=== PATIENT | male | born 1935 | race Caucasian/White ===

== ENCOUNTER 2016-10-16 12:23 | Inpatient (IN) | payer MEDICARE, OTHER ==
[2016-10-16] VITALS (7 sets, daily range): BP systolic 108–147; BP diastolic 64–67; PULSE 92–114; RESP 20; TEMP 96.9–97.9; O2SAT 90–98
[~2016-10-16] VITALS: Ht 177.8 cm; Wt 80.3 kg
[~2016-10-16 12:23] MED LIST: ALLO100 PO; ASPI81 PO; CALTTAB2 PO; CENTTAB9 PO; FERR324T4 PO; FOLI1TAB PO; LEVO50TA4 PO; LEVOFLOXACIN PO; MIRA33502 PO; MS C30TA5 PO; NEUR800T PO; NIAS10004 PO; NOVOLOGMXP SQ; OMEP20CA5 PO; OXYC5 PO; PAME10CA PO; PRED5TAB; PRIN10TA PO; SLEE25TA PO; [UNRECOGNIZED DRUG - CODE] PO
--- NOTE | 2016-10-16 12:50 | PD ---
HPI Chief Complaint: General Weakness Time Seen by Provider: 12:35 Travel History International Travel<30 days: No Contact w/Intl Traveler<30days: No Traveled to known affect area: No History of Present Illness HPI This 81-year-old male is here with complaint of generalized weakness. He says his symptoms have been going on for several weeks but seems to be getting worse the last few days. He has a history of COPD. He had a liver transplant in 1997 which his knowledge has been working well. He was recently treated for lung cancer. He was treated with radiation and chemotherapy chemotherapy was cut short because his bone marrow was not recovering very well. He was treated at [facility] by Dr. Marques. His last treatment was 5 weeks ago. He has been a bit confused at times. His says he has been confused at times. He has had some trouble with tasks he does on a regular basis. His balance has been off. He generally walks with a walker but the last 2 days she has been using a wheelchair because he is quite unsteady. PFSH Past Medical History Cancer: Yes (BLADDER) Chemotherapy: Yes Diabetes: Yes Diminished Hearing: No Glaucoma: No Hiatal Hernia: No Hypertension: Yes Thyroid Disease: Yes Past Surgical History Abdominal Surgery: Yes (LIVER TRANSPLANT) Genitourinary Surgery: Yes (CYSTO) Neurologic Surgery: Yes (CERVICAL LAMINECTOMY) Oral Surgery: Yes (T & A) Pacemaker: No Other Surgery: Yes Social History Alcohol Use: No Tobacco Use: Yes (QUIT 1984) Substance Use: No Allergies-Medications (Allergen,Severity, Reaction): Coded Allergies: Vaccines (Bovine) (Verified Allergy, Severe, 05/11/14) Vaccines (Porcine) (Verified Allergy, Severe, 05/11/14) Pea (Verified Adverse Reaction, Severe, VOMITING, 05/11/14) Reported Meds & Prescriptions Reported Meds & Active Scripts Active Reported Guaifenesin 400 Mg Tab Ventolin Hfa 18 GM Inh (Albuterol Sulfate) 90 Mcg/Act Aer 2 Puff INH Q4-6H PRN Ursodiol 300 Mg Cap 300 Mg PO BID Lyrica (Pregabalin) 150 Mg Cap 150 Mg PO BID Prednisone 2.5 Mg Tab 2.5 Mg PO DAILY Miralax (Polyethylene Glycol 3350) 17 Gm Powd.pack Oxycodone (Oxycodone HCl) 5 Mg Cap 5 Mg PO Q6H PRN Omeprazole 20 Mg Tab 20 Mg PO DAILY Nortriptyline (Nortriptyline HCl) 10 Mg Cap 10 Mg PO HS Mycophenolate (Mycophenolate Mofetil) 500 Mg Tab 1,000 Mg PO BID Morphine ER (Morphine Sulfate) 30 Mg Tab 30 Mg PO Q8H Levothyroxine (Levothyroxine Sodium) 100 Mcg Tab 100 Mcg PO DAILY Lantus Solostar Pen Inj (Insulin Glargine) 300 Unit/3 Ml Pen 1 Units SQ Afrezza 4 & 8 & 12 Unit (Insulin Regular (Human)) 1 Pow Pow Folic Acid 800 Mcg Tab 800 Mcg PO DAILY Clotrimazole Topical (Clotrimazole) 1% Soln 1 Applic TOPICAL BID D-2000 Maximum Strength (Cholecalciferol) 2,000 Unit Tab 2,000 Units PO DAILY Allopurinol 100 Mg Tab 100 Mg PO DAILY Megestrol (Megestrol Acetate) 40 Mg Tab 40 Mg PO QID Review of Systems General / Constitutional: No: Fever, Chills Eyes: No: Diploplia, Blurred Vision HENT: No: Headaches Cardiovascular: No: Chest Pain or Discomfort Respiratory: Positive: Cough, Shortness of Breath, Orthopnea Gastrointestinal: No: Vomiting, Diarrhea Genitourinary: No: Urgency, Frequency Musculoskeletal: No: Myalgias Skin: No Change in nails Neurologic: Positive: Change in Mentation, No: Focal Abnormalities Endocrine: No: Cold Intolerance Hematologic/Lymphatic: No: Easy Bruising Physical Exam Narrative GENERAL: Chronically ill-appearing male. He is dyspneic SKIN: Focused skin assessment warm/dry. HEAD: Atraumatic. Normocephalic. EYES: Pupils equal and round. No scleral icterus. No injection or drainage. ENT: No nasal bleeding or discharge. Mucous membranes pink and moist. NECK: Trachea midline. No JVD. CARDIOVASCULAR: Regular rate and rhythm. No murmur appreciated. RESPIRATORY: There is accessory muscle use. There are coarse rales more prominent on the left side GASTROINTESTINAL: Abdomen soft, non-tender, nondistended. Hepatic and splenic margins not palpable. MUSCULOSKELETAL: No obvious deformities. No clubbing. No cyanosis. No edema. NEUROLOGICAL: Awake and alert. No obvious cranial nerve deficits. Motor grossly within normal limits. Normal speech. PSYCHIATRIC: Appropriate mood and affect; insight and judgment normal. Data Data Last Documented VS Vital Signs Date Time Temp Pulse Resp B/P Pulse Ox O2 Delivery O2 Flow Rate FiO2 10/16/16 13:14 92 10/16/16 12:27 97.9 99 20 110/67 Orders Electrocardiogram (10/16/16 12:46) Complete Blood Count With Diff (10/16/16 12:46) Comprehensive Metabolic Panel (10/16/16 12:46) Troponin I (10/16/16 12:46) B-Type Natriuretic Peptide (10/16/16 12:46) Prothrombin Time / Inr (Pt) (10/16/16 12:46) Act Partial Throm Time (Ptt) (10/16/16 12:46) Urinalysis - C+S If Indicated (10/16/16 12:46) Chest, Single Ap (10/16/16 12:46) Ct Brain W/O Iv Contrast(Rout) (10/16/16 12:46) Iv Access Insert/Monitor (10/16/16 12:46) Ecg Monitoring (10/16/16 12:46) Oximetry (10/16/16 12:46) Blood Culture (10/16/16 14:02) Lactic Acid Sepsis Protocol (10/16/16 14:09) Ceftriaxone Inj (Rocephin Inj) (10/16/16 14:15) Sodium Chlor 0.9% 1000 Ml Inj (Ns 1000 M (10/16/16 14:30) Labs Laboratory Tests Test 10/16/16 13:35 White Blood Count 7.0 TH/MM3 Red Blood Count 3.13 MIL/MM3 Hemoglobin 10.0 GM/DL Hematocrit 29.9 % Mean Corpuscular Volume 95.4 FL Mean Corpuscular Hemoglobin 31.9 PG Mean Corpuscular Hemoglobin 33.5 % Concent Red Cell Distribution Width 15.4 % Platelet Count 182 TH/MM3 Mean Platelet Volume 7.3 FL Neutrophils (%) (Auto) 79.6 % Lymphocytes (%) (Auto) 5.7 % Monocytes (%) (Auto) 12.9 % Eosinophils (%) (Auto) 1.5 % Basophils (%) (Auto) 0.3 % Neutrophils # (Auto) 5.6 TH/MM3 Lymphocytes # (Auto) 0.4 TH/MM3 Monocytes # (Auto) 0.9 TH/MM3 Eosinophils # (Auto) 0.1 TH/MM3 Basophils # (Auto) 0.0 TH/MM3 CBC Comment DIFF FINAL Differential Comment Prothrombin Time 12.0 SEC Prothromb Time International 1.1 RATIO Ratio Activated Partial 52.0 SEC Thromboplast Time Sodium Level 140 MEQ/L Potassium Level 3.7 MEQ/L Chloride Level 107 MEQ/L Carbon Dioxide Level 20.7 MEQ/L Anion Gap 12 MEQ/L Blood Urea Nitrogen 22 MG/DL Creatinine 0.94 MG/DL Estimat Glomerular Filtration 77 ML/MIN Rate Random Glucose 168 MG/DL Calcium Level 8.6 MG/DL Total Bilirubin 0.8 MG/DL Aspartate Amino Transf 9 U/L (AST/SGOT) Alanine Aminotransferase 9 U/L (ALT/SGPT) Alkaline Phosphatase 146 U/L Troponin I LESS THAN 0.02 NG/ML B-Type Natriuretic Peptide 162 PG/ML Total Protein 6.3 GM/DL Albumin 2.4 GM/DL MDM Medical Decision Making Medical Screen Exam Complete: Yes Emergency Medical Condition: Yes Medical Record Reviewed: Yes Differential Diagnosis Differential includes metastatic lung cancer, CVA, pneumonia Narrative Course White count is normal. Chest x-ray shows left mid lung and basilar infiltrate characteristic of either acute pneumonia or postradiation pneumonitis. CT of the brain is read as showing atrophy. EKG shows sinus rhythm with first-degree AV block and a right bundle-branch block Diagnosis Primary Impression: Pneumonia Shawn Cloud MD Oct 16, 2016 12:50
[2016-10-16] MEDS ORDERED: LANTINJ SQ (13:14)
[2016-10-16] MEDS ORDERED: GUAI400T8 (13:14)
[2016-10-16] MEDS ORDERED: URSO300C2 PO (13:14)
[2016-10-16] MEDS ORDERED: LYRI150C PO (13:14)
[2016-10-16] MEDS ORDERED: MEGE40TA PO (13:14)
[2016-10-16] MEDS ORDERED: NORT10CA PO (13:14)
[2016-10-16] MEDS ORDERED: FOLI800T PO (13:14)
[2016-10-16] MEDS ORDERED: POLY17PO3 (13:14)
[2016-10-16] MEDS ORDERED: ALLO100T PO (13:14)
[2016-10-16] MEDS ORDERED: PRED2.5T PO (13:14)
[2016-10-16] MEDS ORDERED: INSU1POW25 (13:14)
[2016-10-16] MEDS ORDERED: LEVO100T5 PO (13:14)
[2016-10-16] MEDS ORDERED: CLOTR1%T TOPICAL (13:14)
[2016-10-16] MEDS ORDERED: MORP1TAB25 PO (13:14)
[2016-10-16] MEDS ORDERED: D-20TAB3 PO (13:14)
[2016-10-16] MEDS ORDERED: VENTAER INH (13:14)
[2016-10-16] MEDS ORDERED: OMEP20TA PO (13:14)
[2016-10-16] MEDS ORDERED: OXYC1CAP PO (13:14)
[2016-10-16] MEDS ORDERED: MYCO500T PO (13:14)
--- NOTE | 2016-10-16 13:36 | RADRPT ---
EXAM DATE/TIME: 10/16/2016 13:11 [facility] COMPARISON: CT BRAIN W/O CONTRAST, May 11, 2014, 23:34. INDICATIONS : Altered mental status. RADIATION DOSE: 67.11 CTDIvol (mGy) MEDICAL HISTORY : Carcinoma, lung. Diabetes mellitus type 2. Renal failure, chronic.Cirrhosis. Bladder cancer. SURGICAL HISTORY : Cervical laminectomy. Liver transplant. ENCOUNTER: Initial ACUITY: 1 day PAIN SCALE: 0/10 LOCATION: cranial TECHNIQUE: Multiple contiguous axial images were obtained of the head. Using automated exposure control and adj ustment of the mA and/or kV according to patient size, radiation dose was kept as low as reasonably a chievable to obtain optimal diagnostic quality images. DICOM format image data is available electro nically for review and comparison. FINDINGS: There is marked central and cortical atrophy with dilatation of ventricular and sulcal spaces. Moderate vascular calcifications are noted. There is no parenchymal hemorrhage, acute infarction or mass lesion identified. There are no extra-axial fluid collections appreciated. The posterior fossa is unremarkable with midline fourth ventricle. The portion of the orbits and paranasal sinuses visu alized are unremarkable. CONCLUSION: Atrophy, moderate vascular calcifications, negative for acute process. Shaka Higuera MD FACR on October 16, 2016 at 13:33 Board Certified Radiologist. This report was verified electronically.
[2016-10-16 13:52] LABS: AUTOMATED NEUTROPHIL # 5.6 TH/MM3 (1.8-7.7); BASOPHIL % 0.3 % (0.0-2.0); EOSINOPHIL # 0.1 TH/MM3 (0-0.4); EOSINOPHIL % 1.5 % (0.0-4.0); HEMATOCRIT 29.9 % (39.0-51.0); HEMO FLAGS DIFF FINAL; LYMPH % 5.7 % (9.0-44.0); LYMPHOCYTE # 0.4 TH/MM3 (1.0-4.8); MEAN CELL VOLUME 95.4 FL (80.0-100.0); MEAN CORPUSCULAR HEMOGLOBIN 31.9 PG (27.0-34.0); MEAN CORPUSCULAR HGB CONC 33.5 % (32.0-36.0); MONO % 12.9 % (0.0-8.0); NEUT % 79.6 % (16.0-70.0); PLATELET COUNT 182 TH/MM3 (150-450); RED BLOOD COUNT 3.13 MIL/MM3 (4.50-5.90); RED CELL DISTRIBUTION WIDTH 15.4 % (11.6-17.2)
[2016-10-16 13:59] LABS: CHLORIDE 107 MEQ/L (98-107); POTASSIUM 3.7 MEQ/L (3.5-5.1); SODIUM (NA) 140 MEQ/L (136-145)
[2016-10-16 14:02] LABS: INTERNATIONAL NORMALIZED RATIO 1.1 RATIO
[2016-10-16 14:04] LABS: ANION GAP 12 MEQ/L (5-15); BICARBONATE 20.7 MEQ/L (21.0-32.0)
[2016-10-16 14:05] LABS: BLOOD UREA NITROGEN 22 MG/DL (7-18)
[2016-10-16 14:07] LABS: ALT (GPT) 9 U/L (12-78); AST (GOT) 9 U/L (15-37)
[2016-10-16 14:08] LABS: GLOMERULAR FILTRATION RATE 77 ML/MIN (>89)
[2016-10-16 14:09] LABS: TOTAL BILIRUBIN ADULT 0.8 MG/DL (0.2-1.0)
[2016-10-16 14:10] LABS: ALKALINE PHOSPHATASE 146 U/L (45-117)
[2016-10-16] MEDS ORDERED: cefTRIAXone INJ 1,000 MG in SODIUM CHLORIDE 0.9% INJ 100 ML IV ONE (14:15)
--- NOTE | 2016-10-16 14:24 | RADRPT ---
EXAM DATE/TIME: 10/16/2016 13:51 [facility] COMPARISON: CT BRAIN W/O CONTRAST, October 16, 2016, 13:11. CT SIMULATION, April 12, 2016, 14:52. CHEST SINGL E AP, May 11, 2014, 22:45. INDICATIONS : Short of breath. MEDICAL HISTORY : Carcinoma, lung. Chronic obstructive pulmonary disease. Diabetes mellitus type II. SURGICAL HISTORY : None. ENCOUNTER: Initial ACUITY: 1 week PAIN SCORE: 0/10 LOCATION: Bilateral chest FINDINGS: A single view of the chest demonstrates significant infiltration throughout the left mid lung and bas e. A CT simulation of the chest was performed for treatment of a left basilar mass. The right lung is clear. [id number] catheter is noted in place. Heart and mediastinal structures are not significantly changed. CONCLUSION: 1. Left mid lung and base infiltration characteristic of either acute pneumonitis or post radiation p neumonitis. 2. Right internal jugular [id number] in good position. Karl Davison MD on October 16, 2016 at 14:18 Board Certified Radiologist. This report was verified electronically.
[2016-10-16] MEDS ORDERED: SODIUM CHLOR 0.9% 1000 ML INJ 1,000 ML IV ONE (14:30)
[2016-10-16] MEDS ORDERED: SODIUM CHLORIDE 0.9% FLUSH 10 ML FLUSH IV FLUSH PRN (15:45)
[2016-10-16] MEDS ORDERED: RESP: ALBUTEROL 2.5 MG/IPRATROPIUM 0.5 MG NEB (PRN) INH (15:45)
--- NOTE | 2016-10-16 15:47 | HHI.HP ---
[facility] Admission Diagnosis PNEUMONIA Diagnoses: Chief Complaint: Weakness Travel History International Travel<30 Days: No Contact w/Intl Traveler <30 Da: No Traveled to Known Affected Are: No History of Present Illness Patient is an 81-year-old gentleman with a history of lung cancer recently undergone radiation. He was in chemotherapy but it was cut short due to poor bone marrow response. The patient presents to the emergency room with his who says that he is more confused and more weak over the last several days. Over the last few weeks he has been sleeping more and not eating well. Over the last 4-5 days he is becoming worse. He does have history of COPD and lung cancer which is being treated. He has not been more short of breath but he's been sleeping a lot. In fact in the emergency room he is hypoxemic at 90%. Patient is anemic also this is not a new problem. Patient has been using a walker but now uses a wheelchair because he is unsteady and she is worried that he will fall. The patient's come to the emergency room for these evaluations and has been found to have pneumonia on x-ray. CT of the head was done which is unremarkable. Patient is on immunosuppressive therapy because of a lung transplant which is done in late . Here he does not have a white cell count elevation does not have a fever but appears quite weak and pale and is concerning for severe pneumonia in immunocompromised host Review of Systems Constitutional: COMPLAINS OF: Dizziness, DENIES: Diaphoretic episodes, Fatigue , Fever, Weight gain, Weight loss, Chills, Change in appetite, Night Sweats Endocrine: COMPLAINS OF: Heat/cold intolerance, DENIES: Polydipsia, Polyuria, Polyphagia Eyes: DENIES: Blurred vision, Diplopia, Eye inflammation, Eye pain, Vision loss , Photosensitivity, Double Vision Ears, nose, mouth, throat: DENIES: Tinnitus, Hearing loss, Vertigo, Nasal discharge, Oral lesions, Throat pain, Hoarseness, Ear Pain, Running Nose, Epistaxis, Sinus Pain, Toothache, Odynophagia Respiratory: DENIES: Apneas, Cough, Snoring, Wheezing, Hemoptysis, Sputum production, Shortness of breath Cardiovascular: DENIES: Chest pain, Palpitations, Syncope, Dyspnea on Exertion , PND, Lower Extremity Edema, Orthopnea, Claudication Gastrointestinal: DENIES: Abdominal pain, Black stools, Bloody stools, Constipation, Diarrhea, Nausea, Vomiting, Difficulty Swallowing, Anorexia Genitourinary: DENIES: Sexual dysfunction, Urinary frequency, Urinary incontinence, Urgency, Hematuria, Dysuria, Nocturia, Penile Discharge, Testicular Pain, Testicular Swelling Musculoskeletal: DENIES: Joint pain, Muscle aches, Stiffness, Joint Swelling, Back pain, Neck pain Integumentary: DENIES: Abnormal pigmentation, Nail changes, Pruritus, Rash Neurologic: COMPLAINS OF: Abnormal gait, Poor Balance, DENIES: Headache, Localized weakness, Paresthesias, Seizures, Speech Problems, Tremor Psychiatric: COMPLAINS OF: Confusion, DENIES: Anxiety, Mood changes, Depression, Hallucinations, Agitation, Suicidal Ideation, Homicidal Ideation, Delusions Past Family Social History Past Medical History Diabetes mellitus type II, Bladder cancer Lung cancer immunosuppressive therapy secondary to liver transplant Diabetic neuropathy Past Surgical History Liver transplant Reported Medications Reviewed in the medical record, Allergies: Coded Allergies: Vaccines (Bovine) (Verified Allergy, Severe, 05/11/14) Vaccines (Porcine) (Verified Allergy, Severe, 05/11/14) Pea (Verified Adverse Reaction, Severe, VOMITING, 05/11/14) Active Ordered Medications Reviewed in the medical record Family History Noncontributory due to patient's age of 81 and he does not recall Social History , no tobacco or alcohol dependency Physical Exam Vital Signs Vital Signs Date Time Temp Pulse Resp B/P Pulse Ox O2 Delivery O2 Flow Rate FiO2 10/16/16 13:14 92 10/16/16 12:27 97.9 99 20 110/67 90 Physical Exam GENERAL: This is a well-nourished, well-developed patient, in no apparent distress. SKIN: No rashes, ecchymoses or lesions. Cool and dry. HEAD: Atraumatic. Normocephalic. No temporal or scalp tenderness. EYES: Pupils equal round and reactive. Extraocular motions intact. No scleral icterus. No injection or drainage. ENT: Nose without bleeding, purulent drainage or septal hematoma. Throat without erythema, tonsillar hypertrophy or exudate. Uvula midline. Airway patent. NECK: Trachea midline. No JVD or lymphadenopathy. Supple, nontender, no meningeal signs. CARDIOVASCULAR: Regular rate and rhythm without murmurs, gallops, or rubs. RESPIRATORY: Clear to auscultation. Breath sounds equal bilaterally. No wheezes , rales, or rhonchi. GASTROINTESTINAL: Abdomen soft, non-tender, nondistended. No hepato-splenomegaly , or palpable masses. No guarding. MUSCULOSKELETAL: Extremities without clubbing, cyanosis, or edema. No joint tenderness, effusion, or edema noted. No calf tenderness. Negative Homans sign bilaterally. NEUROLOGICAL: Awake and alert. Cranial nerves II through XII intact. Motor and sensory grossly within normal limits. Five out of 5 muscle strength in all muscle groups. Normal speech. Laboratory Laboratory Tests Test 10/16/16 10/16/16 13:35 15:09 White Blood Count 7.0 Red Blood Count 3.13 Hemoglobin 10.0 Hematocrit 29.9 Mean Corpuscular Volume 95.4 Mean Corpuscular Hemoglobin 31.9 Mean Corpuscular Hemoglobin 33.5 Concent Red Cell Distribution Width 15.4 Platelet Count 182 Mean Platelet Volume 7.3 Neutrophils (%) (Auto) 79.6 Lymphocytes (%) (Auto) 5.7 Monocytes (%) (Auto) 12.9 Eosinophils (%) (Auto) 1.5 Basophils (%) (Auto) 0.3 Neutrophils # (Auto) 5.6 Lymphocytes # (Auto) 0.4 Monocytes # (Auto) 0.9 Eosinophils # (Auto) 0.1 Basophils # (Auto) 0.0 CBC Comment DIFF FINAL Differential Comment Prothrombin Time 12.0 Prothromb Time International 1.1 Ratio Activated Partial 52.0 Thromboplast Time Sodium Level 140 Potassium Level 3.7 Chloride Level 107 Carbon Dioxide Level 20.7 Anion Gap 12 Blood Urea Nitrogen 22 Creatinine 0.94 Estimat Glomerular Filtration 77 Rate Random Glucose 168 Calcium Level 8.6 Total Bilirubin 0.8 Aspartate Amino Transf 9 (AST/SGOT) Alanine Aminotransferase 9 (ALT/SGPT) Alkaline Phosphatase 146 Troponin I LESS THAN 0.02 B-Type Natriuretic Peptide 162 Total Protein 6.3 Albumin 2.4 Lactic Acid Level 0.7 Date/Time Procedure Status Source Growth 10/16/16 14:13 Aerobic Blood Culture Received Blood Peripheral Pending 10/16/16 14:13 Anaerobic Blood Culture Received Blood Peripheral Pending Result Diagram: 10/16/16 1335 10/16/16 1335 Assessment and Plan Problem List: (1) Pneumonia ICD Code: J18.9 Status: Acute Plan: Patient admits intolerance to azithromycin and Augmentin We'll add Levaquin Rule out pulmonary embolism given his hypoxemia and malignancy We'll follow with sputum as it becomes available and continue with bronchodilators (2) Weakness ICD Code: R53.1 Status: Acute Plan: Perhaps due from pneumonia which we will treat as above, continue with PT evaluation We will correct organic dysfunction Physician Certification 2 Midnight Certification Type: Admission for Inpatient Services Order for Inpatient Services The services are ordered in accordance with Medicare regulations or non- Medicare payer requirements, as applicable. In the case of services not specified as inpatient-only, they are appropriately provided as inpatient services in accordance with the 2-midnight benchmark. Estimated LOS (days): 3 3 days is the estimated time the patient will need to remain in the hospital, assuming treatment plan goals are met and no additional complications. Post-Hospital Plan: Home Problem Qualifiers (1) Pneumonia: Fauzia Bosch MD Oct 16, 2016 15:47
[2016-10-16] MEDS ORDERED: GLUCAGON 1 MG/ML VIAL OTHER PRN (16:00)
[2016-10-16] MEDS ORDERED: DEXTROSE 50% IN WATER 50 ML VIAL(D50) IV PRN (16:00)
[2016-10-16] MEDS: LEVOFLOXACIN 750 MG PREMIX INJ 150 ML IV SCH (17:33)
[2016-10-16] MEDS: INSULIN ASPART SUPPLEMENTAL SCALE SQ SCH ×2 (17:39→23:41)
[2016-10-16] MEDS ORDERED: IOHEXOL 350 MG/ML 10 ML VIAL (for RAD DIAG) IV ONE (18:00)
--- NOTE | 2016-10-16 18:15 | RADRPT ---
EXAM DATE/TIME: 10/16/2016 17:48 [facility] COMPARISON: No previous studies available for comparison. INDICATIONS : Shortness of breath. IV CONTRAST: 65 cc Omnipaque 350 (iohexol) IV RADIATION DOSE: 18.23 CTDIvol (mGy) MEDICAL HISTORY : Diabetes mellitus type 2. Carcinoma, lung. Carcinoma, bladder. SURGICAL HISTORY : None. ENCOUNTER: Initial ACUITY: 1 day PAIN SCALE: 0/10 LOCATION: chest TECHNIQUE: Volumetric scanning of the chest was performed using a pulmonary embolism protocol MIP images were re constructed. Using automated exposure control and adjustment of the mA and/or kV according to patien t size, radiation dose was kept as low as reasonably achievable to obtain optimal diagnostic quality images. DICOM format image data is available electronically for review and comparison. Follow-up recommendations for incidentally detected pulmonary nodules are based at a minimum on nodul e size and patient risk factors according to Fleischner Society Guidelines. FINDINGS: No filling defects identified in the pulmonary arteries to suggest pulmonary embolic disease. There are presumed post radiation changes in the left lung characterized by consolidation with air br onchograms suspected fibrotic change and some cylindrical bronchiectasis. There are dependent and bas ilar densities in both lungs possibly related to prior aspiration or some form of calcification the l ungs. There is a small left effusion. Right sided pleural thickening present. No adenopathy. Dense co ronary calcifications. CONCLUSION: 1. Negative for pulmonary embolus. 2. Multifocal consolidation in the left lung which could be related to radiation changes and fibrosis with traction bronchiectasis. Small left effusion. 3. Basilar dependent calcification or radiopaque barium which could be related to prior aspiration. Juan Villeda MD on October 16, 2016 at 18:07 Board Certified Radiologist. This report was verified electronically.
[2016-10-16] MEDS: SODIUM CHLORIDE 0.9% FLUSH 10 ML FLUSH IV FLUSH SCH (21:00)
--- NOTE | 2016-10-16 21:18 | MB ---
cc: ELMIRA LARRY MD DATE OF CONSULTATION: 10/16/2016 REASON FOR CONSULTATION: Pneumonia. REQUESTING PHYSICIAN Dr. Bosch HISTORY OF PRESENT ILLNESS This is an 81-year-old white male who has a history of lung cancer which has been treated with chemotherapy and radiation therapy. The patient presented to the emergency department with generalized weakness. It is reported to have been going on for several weeks and getting worse. The patient's noted that he has had cough in the morning, and in the morning he gets a lot of secretions in the oral cavity and also nasal secretions as well. She noted that he has not seemed as alert as usual. The patient does receive radiation therapy to the lungs and that was completed in June 2016. He had a chest x-ray that was performed and it showed mid lung and basilar infiltrate. CT scan was subsequently performed and it shows multifocal consolidation in the left lung which could be related to radiation changes and fibrosis, and a small left effusion. The patient's white blood cell count is normal. He is afebrile. He does not appear to be in any acute distress. He is awake and he is alert. He denies any aches or pains including chest pain but tells me he does get short of breath at times. He is not on any oxygen. His is at bedside. She reports no fevers recently. She did mention that he may have been having problems with swallowing and sometimes complains of some difficulty with what sounds like regurgitation when he eats. PAST MEDICAL HISTORY 1. Lung cancer treated with radiation and chemotherapy. 2. Diabetes mellitus 3. Hypertension 4. Thyroid disease 5. Bladder cancer 6. Cervical laminectomy 7. Liver transplant Cystoscopy. ALLERGIES Vaccines (bovine and porcine). Pea. MEDICATIONS 8. Levaquin. 9. Insulin. 10. DuoNeb 11. Ceftriaxone x1 was given earlier. SOCIAL HISTORY The patient is . No tobacco, no alcohol. No illicit drugs. FAMILY HISTORY Noncontributory. REVIEW OF SYSTEMS Pertinent as mentioned above, otherwise negative on 10 point. PHYSICAL EXAMINATION: The patient is a slender male, who appears well-nourished. He is awake, alert, in no acute distress. VITAL SIGNS: Temperature 97.8, blood pressure 130/64, respiratory rate 20, heart rate 96. HEENT: Head is atraumatic. Extraocular movements grossly intact, pupils reactive to light. No icterus. Oropharynx, moist mucosa without lesions. Neck: Supple without adenopathy. Lungs: Decreased breath sounds throughout. Heart: Regular S1-S2 without murmurs. Chest: [id number] in place at the right chest and that appears intact. Abdomen: Bowel sounds present, soft, no tenderness. No mass palpable. Rectal: Not performed. Extremities: No clubbing or cyanosis or edema. Skin: No rash. Neuro: No gross focal findings. LABORATORY DATA WBC 7.0, platelet count 182, 79% neutrophils, 12% monocytes, hemoglobin 10.0, creatinine 0.94, BUN 22, estimated GFR 77. Liver function tests normal. Albumin 2.4, blood cultures pending. CT scan of the head shows atrophy but no acute process. IMPRESSION 1. Lung infiltrate, probably likely secondary to radiation versus aspiration pneumonia. 2. Lung cancer. The patient does not have fever or elevated white blood cell count. He does not seem to have pleuritic chest pain, so therefore it may be due to radiation pneumonitis. However, given the infiltrate involving both mid and lower lung, we would need to make sure he does not have bacterial pneumonia, and therefore antibiotics should be continued to see if he responds. RECOMMENDATIONS 1. Continue Levaquin. 2. Monitor clinical status and chest x-ray. Further decisions on followup of the patient. The patient will continue to be followed by Dr. Guan for ID, who will be taking over care beginning tomorrow for infectious disease followup. Thank you for this consultation. Elmira Larry MD FD/CEE /6:50 PM /8:58 PM
[2016-10-16 21:46] LABS: BLOOD, URINE NEG (NEG); GLUCOSE,URINE NEG (NEG); KETONE, URINE TRACE mg/dL (NEG); NITRITE,URINE NEG (NEG)
[2016-10-16 21:52] LABS: SQUAMOUS EPITHELIAL CELL URINE 0-5 /hpf (0-5); URINE COLOR YELLOW (YELLW/STRAW)
[2016-10-16 21:53] LABS: COMMENT (UR) CULT NOT INDICATED; CULTURE IF INDICATED CULT NOT INDICATED
[2016-10-16] MEDS ORDERED: MORPHINE SULFATE 15 MG TAB PO ONE (22:00)
[2016-10-16] MEDS: PREGABALIN 75 MG CAP PO SCH (23:41)
[2016-10-16] MEDS: MYCOPHENOLATE MOFETIL 500 MG TAB PO SCH (23:43)
[2016-10-16] MEDS: NORTRIPTYLINE HCL 10 MG CAP PO SCH (23:43)
[2016-10-16] MEDS: URSODIOL 300 MG CAP PO SCH (23:44)
[2016-10-17] VITALS (7 sets, daily range): BP systolic 102–144; BP diastolic 55–81; PULSE 59–93; RESP 18–20; TEMP 96.8–97.9; O2SAT 93–99
[2016-10-17] MEDS: LEVOTHYROXINE SODIUM 100 MCG TAB PO SCH (04:53)
[2016-10-17] MEDS: INSULIN ASPART SUPPLEMENTAL SCALE SQ SCH ×4 (07:00→20:42)
--- NOTE | 2016-10-17 08:04 | MB ---
cc: CHANDNI SMITH M.D. DATE OF CONSULTATION 10/16/2016 REASON FOR CONSULTATION Consult requested by [facility] hospitalist for evaluation of lung cancer in a patient who is admitted for pneumonia and change in mental status. HISTORY OF PRESENT ILLNESS Jaydon is a pleasant 81-year-old male who was recently diagnosed with non-small cell lung cancer, stage III. He was treated with combined concurrent radiation and chemotherapy with an excellent response. The patient subsequently was treated with consolidative chemotherapy, carboplatin and Taxol. He had three cycles. The last cycle was not given as he has developed profound myelosuppression. The patient was in his usual status of health up until recently, he had developed cough, shortness of breath and his performance status was declining. His stated that she was unable to help him. He was found to be very confused. He was brought into the emergency room. He had a CT scan of the head which came back negative for any metastatic disease. He has atrophy with moderate vascular calcification. The chest x-ray is consistent with left pneumonia. The patient is admitted to the hospital. Infectious disease has been consulted for the pneumonia. I have been asked to see him as well. The patient is pleasantly confused, but according to his , he is coming around. He is complaining of extreme weakness, tiredness and fatigue. He denies any headaches. He denies any nausea, vomiting, diarrhea or constipation. His appetite is slowly improving. The rest of the review of systems is negative. PAST MEDICAL HISTORY 1. Non-small cell lung cancer, stage III 2. Diabetes mellitus 3. History of urinary bladder cancer 4. Neuropathy PAST SURGICAL HISTORY 1. Liver transplant 2. Gurgug-A-Frgu placement ALLERGIES PORCINE AND BOVINE VACCINES, AND ALSO ALLERGIES TO PEA. MEDICATIONS Please see EMR. FAMILY HISTORY Noncontributory SOCIAL HISTORY The patient is , does not smoke cigarettes or drink alcohol. PHYSICAL EXAM This is an elderly white elderly white male in no apparent distress. VITAL SIGNS: Temperature 97.8, heart rate is 96. Blood pressure 130/64, O2 suture saturation 93%. HEENT: PERRLA, EOMI, anicteric. No oral lesions noted. NECK: Supple. There is no cervical, supraclavicular, axillary lymphadenopathy noted. LUNGS: Clear. No wheezing, rhonchi or rales. HEART: Regular rate and rhythm. ABDOMEN: Soft and nontender. No hepatosplenomegaly. EXTREMITIES: No pedal edema. NEUROLOGIC: The patient is awake, alert, oriented x1. SKIN: No significant lesions noted. LABORATORY DATA White count is 7, hemoglobin 10, hematocrit 29.9, platelet count is 182, absolute neutrophil count is 5600. ASSESSMENT 1. Non-small cell lung cancer, stage III status post radiation and chemotherapy followed by consolidation chemotherapy recently completed. 2. Pneumonia 3. Change in mental status with no evidence of brain metastasis which is most likely due to due to the pneumonia. PLAN I have reviewed his available records and I have discussed with the patient and his regarding the change in mental status which is most likely due to the pneumonia. He has developed pneumonia and he is on antibiotics. ID has been consulted. There is no evidence of residual lung cancer noted at this time. The patient is not neutropenic. His white count is 7, absolute neutrophil count is 5600. The patient does not require any Neupogen or transfusion support. In fact, he does not require any oncology intervention during this admission. Once the patient is discharged, then I will follow him in our office. I will sign off on the case and I will be available as needed. Thank you for asking my opinion. MD TAWANNA Lord/MALLIKA /10:25 PM /7:46 AM
[2016-10-17] MEDS: MEGESTROL ACETATE 40 MG TAB PO SCH ×4 (08:29→20:34)
[2016-10-17] MEDS: PANTOPRAZOLE SOD 20 MG DELAYED RELEASE TAB PO SCH (08:29)
[2016-10-17] MEDS: PREGABALIN 75 MG CAP PO SCH ×2 (08:29→20:36)
[2016-10-17] MEDS: predniSONE 5 MG TAB PO SCH (08:29)
[2016-10-17] MEDS: ALLOPURINOL 100 MG TAB PO SCH (08:29)
[2016-10-17] MEDS: SODIUM CHLORIDE 0.9% FLUSH 10 ML FLUSH IV FLUSH SCH ×2 (08:30→20:34)
[2016-10-17] MEDS: MYCOPHENOLATE MOFETIL 500 MG TAB PO SCH ×2 (08:54→20:35)
[2016-10-17] MEDS: URSODIOL 300 MG CAP PO SCH ×2 (08:54→20:34)
--- NOTE | 2016-10-17 11:28 | EKG ---
Date Performed: 10/16/2016 Time Performed: 12:59:04 PTAGE: 81 years EKG: ATRIAL FIBRILLATION RIGHT BUNDLE BRANCH BLOCK ABNORMAL ECG Compared to prior tracing no sig nificant change PREVIOUS TRACING : 05/11/2014 22.45 DOCTOR: José Miguel Narvaez Interpretating Date/Time 10/17/2016 11:26:15
--- NOTE | 2016-10-17 13:06 | HHI.PR ---
Subjective Remarks Patient seen in follow up for weakness and CAP Tolerating abx well ID and Oncology eval appreciated D/W patient and spouse Objective Vitals Vital Signs Date Time Temp Pulse Resp B/P Pulse Ox O2 Delivery O2 Flow Rate FiO2 10/17/16 12:22 96.8 93 19 114/55 99 10/17/16 08:31 97.6 59 19 123/64 93 10/17/16 08:10 93 21 10/17/16 00:00 97.9 92 20 144/81 95 10/16/16 20:40 94 21 10/16/16 20:00 96.9 114 20 108/66 98 10/16/16 17:31 94 21 10/16/16 16:00 97.8 96 20 130/64 93 10/16/16 15:45 92 147/67 96 10/16/16 13:14 92 I/O 10/16/16 10/16/16 10/16/16 10/17/16 10/17/16 10/17/16 07:00 15:00 23:00 07:00 15:00 23:00 Intake Total 420 ml 1097 ml Output Total 250 ml 225 ml Balance 170 ml 872 ml Intake Oral 120 ml 240 ml IV Total 300 ml 857 ml Output Urine Total 250 ml 225 ml # Voids 1 1 # Bowel Movements 0 0 Result Diagram: 10/16/16 1335 10/16/16 1335 Imaging Last Impressions Head CT 10/16/16 1246 Signed Impressions: Service Date/Time: Sunday, October 16, 2016 13:11 - CONCLUSION: Atrophy, moderate vascular calcifications, negative for acute process. Shaka Higuera MD FACR Chest X-Ray 10/16/16 1246 Signed Impressions: Service Date/Time: Sunday, October 16, 2016 13:51 - CONCLUSION: 1. Left mid lung and base infiltration characteristic of either acute pneumonitis or post radiation pneumonitis. 2. Right internal jugular Spdvtj-k-Niyi in good position. Karl Davison MD CT Angiography 10/16/16 0000 Signed Impressions: Service Date/Time: Sunday, October 16, 2016 17:48 - CONCLUSION: 1. Negative for pulmonary embolus. 2. Multifocal consolidation in the left lung which could be related to radiation changes and fibrosis with traction bronchiectasis. Small left effusion. 3. Basilar dependent calcification or radiopaque barium which could be related to prior aspiration. Juan Villeda MD Objective Remarks GENERAL: This is a well-nourished, well-developed patient, frail, tired CARDIOVASCULAR: Regular rate and rhythm without murmurs, gallops, or rubs. RESPIRATORY: shallow, crackles in the bases bilat. No wheezes, rales, or rhonchi. GASTROINTESTINAL: Abdomen soft, non-tender, nondistended. Normal active bowel sounds MUSCULOSKELETAL: Extremities without clubbing, cyanosis, or edema. NEURO: Alert & Oriented x4 to person, place, time, situation. Moves all ext x4 A/P Problem List: (1) Pneumonia ICD Code: J18.9 Status: Acute Plan: Patient admits intolerance to azithromycin and Augmentin continue Levaquin for left lung CAP Rule out pulmonary embolism given his hypoxemia and malignancy We'll follow with sputum as it becomes available and continue with bronchodilators ID consult appreciated (2) Weakness ICD Code: R53.1 Status: Acute Plan: Perhaps due from pneumonia which we will treat as above, continue with PT evaluation We will correct organic dysfunction may need HHC at DC (3) Non-small cell carcinoma of lung ICD Code: C34.90 Status: Acute Plan: s/p radiation and chemo with good response but with myelosuppression Follow up with oncology after d/c (4) Liver transplant status ICD Code: Z94.4 Status: Acute Plan: (in 1997) stable status on immunosuppressants Assessment and Plan heparin q8 Problem Qualifiers (1) Pneumonia: Fauzia Bosch MD Oct 17, 2016 13:06
[2016-10-17] MEDS: LEVOFLOXACIN 750 MG PREMIX INJ 150 ML IV SCH (15:52)
[2016-10-17] MEDS: HEPARIN SODIUM - SQ 10,000 UNITS/ML VIAL SQ SCH ×2 (15:52→20:37)
[2016-10-17] MEDS: DOCUSATE SODIUM 50 MG/SENNA 8.6 MG TAB PO SCH ×2 (18:33→20:35)
[2016-10-17] MEDS: NORTRIPTYLINE HCL 10 MG CAP PO SCH (20:34)
[2016-10-18] VITALS (7 sets, daily range): BP systolic 124–149; BP diastolic 64–82; PULSE 76–87; RESP 12–19; TEMP 96.1–98.3; O2SAT 95–99
[2016-10-18] MEDS: LEVOTHYROXINE SODIUM 100 MCG TAB PO SCH (06:35)
[2016-10-18] MEDS: HEPARIN SODIUM - SQ 10,000 UNITS/ML VIAL SQ SCH ×3 (06:37→20:25)
[2016-10-18] MEDS: ALLOPURINOL 100 MG TAB PO SCH (09:14)
[2016-10-18] MEDS: URSODIOL 300 MG CAP PO SCH ×2 (09:14→20:21)
[2016-10-18] MEDS: DOCUSATE SODIUM 50 MG/SENNA 8.6 MG TAB PO SCH (09:14)
[2016-10-18] MEDS: PREGABALIN 75 MG CAP PO SCH ×2 (09:14→20:24)
[2016-10-18] MEDS: PANTOPRAZOLE SOD 20 MG DELAYED RELEASE TAB PO SCH (09:14)
[2016-10-18] MEDS: predniSONE 5 MG TAB PO SCH (09:14)
[2016-10-18] MEDS: MEGESTROL ACETATE 40 MG TAB PO SCH ×4 (09:14→20:22)
[2016-10-18] MEDS: MYCOPHENOLATE MOFETIL 500 MG TAB PO SCH ×2 (09:15→20:25)
[2016-10-18] MEDS: INSULIN ASPART SUPPLEMENTAL SCALE SQ SCH ×4 (09:31→20:38)
[2016-10-18] MEDS: SODIUM CHLORIDE 0.9% FLUSH 10 ML FLUSH IV FLUSH SCH ×2 (09:34→21:00)
--- NOTE | 2016-10-18 14:24 | HHI.PR ---
Subjective Remarks Follow-up community-acquired bacteria pneumonia 10/18/16-patient seen and examined; tired and sleepy. Afebrile. by the bedside and states patient has been quite tired today with decrease by mouth intake Objective Vitals Vital Signs Date Time Temp Pulse Resp B/P Pulse Ox O2 Delivery O2 Flow Rate FiO2 10/18/16 12:32 96.7 82 19 142/82 98 10/18/16 08:21 98.3 87 19 143/77 95 10/18/16 07:58 96 21 10/18/16 00:00 97.6 76 18 149/81 99 10/17/16 21:00 97.7 80 18 107/71 99 10/17/16 19:27 94 21 10/17/16 16:27 97.3 83 19 102/61 94 I/O 10/17/16 10/17/16 10/17/16 10/18/16 10/18/16 10/18/16 07:00 15:00 23:00 07:00 15:00 23:00 Intake Total 1097 ml 1090 ml 300 ml Output Total 225 ml 300 ml 700 ml 200 ml Balance 872 ml 790 ml -400 ml -200 ml Intake Oral 240 ml 1090 ml 300 ml IV Total 857 ml Output Urine Total 225 ml 300 ml 700 ml 200 ml # Voids 1 4 # Bowel Movements 0 1 Result Diagram: 10/16/16 1335 10/16/16 1335 Imaging Last Impressions Head CT 10/16/16 1246 Signed Impressions: Service Date/Time: Sunday, October 16, 2016 13:11 - CONCLUSION: Atrophy, moderate vascular calcifications, negative for acute process. Shaka Higuera MD FACR Chest X-Ray 10/16/16 1246 Signed Impressions: Service Date/Time: Sunday, October 16, 2016 13:51 - CONCLUSION: 1. Left mid lung and base infiltration characteristic of either acute pneumonitis or post radiation pneumonitis. 2. Right internal jugular Zgpyiv-r-[id number] in good position. Karl Davison MD CT Angiography 10/16/16 0000 Signed Impressions: Service Date/Time: Sunday, October 16, 2016 17:48 - CONCLUSION: 1. Negative for pulmonary embolus. 2. Multifocal consolidation in the left lung which could be related to radiation changes and fibrosis with traction bronchiectasis. Small left effusion. 3. Basilar dependent calcification or radiopaque barium which could be related to prior aspiration. Juan Villeda MD Objective Remarks GENERAL: NAD SKIN: Warm and dry. HEAD: Normocephalic. EYES: No scleral icterus. No injection or drainage. NECK: Supple, trachea midline. No JVD or lymphadenopathy. CARDIOVASCULAR: Regular rate and rhythm without murmurs, gallops, or rubs. RESPIRATORY: Breath sounds equal bilaterally. No accessory muscle use. GASTROINTESTINAL: Abdomen soft, non-tender, nondistended. MUSCULOSKELETAL: No cyanosis, or edema. BACK: Nontender without obvious deformity. No CVA tenderness. A/P Problem List: (1) Pneumonia ICD Code: J18.9 Status: Acute (2) Weakness ICD Code: R53.1 Status: Acute (3) Non-small cell carcinoma of lung ICD Code: C34.90 Status: Acute (4) Liver transplant status ICD Code: Z94.4 Status: Acute Assessment and Plan 81-year-old man with Community-acquired bacteria pneumonia Currently on IV Levaquin Appreciate input from ID Metabolic encephalopathy Improving Secondary to above infectious process History of lung cancer Appreciate input from medical oncology, who signed off History of liver transplant Continue with CellCept Hypothyroidism Continue with Synthroid DVT prophylaxis: Heparin Problem Qualifiers (1) Pneumonia: Bola Souza MD Oct 18, 2016 14:24
[2016-10-18] MEDS: LEVOFLOXACIN 750 MG PREMIX INJ 150 ML IV SCH (15:55)
[2016-10-18] MEDS ORDERED: SODIUM CHLORIDE 0.9% FLUSH 10 ML FLUSH IV FLUSH PRN (18:15)
[2016-10-18] MEDS: ACETAMINOPHEN 325 MG TAB PO PRN (18:25)
--- NOTE | 2016-10-18 19:15 | PD.WCN.NOT ---
Wound Consult Description: Bilateral buttock moisture related breakdown Communicated with: MAKENZIE Mclaughlin and VENTURA Lindo Recommendation: Please cleanse buttock area gently with soap and water and pat dry. Apply Calazime barrier cream BID and PRN. Additional Information: Patient seen on 3rd floor PO for evaluation of pressure ulcer to buttock area. Patient turned with assistance from contract technical writer to R side. Removed adhesive foam dressing in place over bilateral buttock area to reveal blanchable erythema to bilateral buttock and denuded peeling skin that is moisture related. Small area of partial thickness skin loss that is also moisture related is noted to R inner buttock. Wound cleansed with normal saline and left open to air. Wound measures ~1 cm x ~1cm x ~<0.1cm. No pressure injuries seen at this time. Erica Patel [facility] Oct 18, 2016 19:15
--- NOTE | 2016-10-18 20:16 | HHI.IDPN ---
Subjective Subjective Remarks ID X cover for D rDonfraid 81 yo male with PNA, no clx availbale 2/2 lack of expectoration off O2 less cough afebrile Antibiotics levaquine Allergies: Coded Allergies: Vaccines (Bovine) (Verified Allergy, Severe, 05/11/14) Vaccines (Porcine) (Verified Allergy, Severe, 05/11/14) Pea (Verified Adverse Reaction, Severe, VOMITING, 05/11/14) Objective . Vital Signs Date Time Temp Pulse Resp B/P Pulse Ox O2 Delivery O2 Flow Rate FiO2 10/18/16 16:26 97.8 87 19 124/69 96 10/18/16 12:32 96.7 82 19 142/82 98 10/18/16 08:21 98.3 87 19 143/77 95 10/18/16 07:58 96 21 10/18/16 00:00 97.6 76 18 149/81 99 10/17/16 21:00 97.7 80 18 107/71 99 10/17/16 10/17/16 10/18/16 15:00 23:00 07:00 Intake Total 1090 ml 300 ml Output Total 300 ml 700 ml Balance 790 ml -400 ml Intake Oral 1090 ml 300 ml Output Urine Total 300 ml 700 ml # Voids 4 # Bowel Movements 1 . Microbiology Date/Time Procedure Status Source Growth 10/16/16 14:03 Aerobic Blood Culture - Preliminary Resulted Blood Peripheral NO GROWTH IN 2 DAYS 10/16/16 14:03 Anaerobic Blood Culture - Preliminary Resulted Blood Peripheral NO GROWTH IN 2 DAYS 10/16/16 14:13 Aerobic Blood Culture - Preliminary Resulted Blood Peripheral NO GROWTH IN 2 DAYS 10/16/16 14:13 Anaerobic Blood Culture - Preliminary Resulted Blood Peripheral NO GROWTH IN 2 DAYS Imaging Last Impressions Head CT 10/16/16 1246 Signed Impressions: Service Date/Time: Sunday, October 16, 2016 13:11 - CONCLUSION: Atrophy, moderate vascular calcifications, negative for acute process. Shaka Higuera MD FACR Chest X-Ray 10/16/16 1246 Signed Impressions: Service Date/Time: Sunday, October 16, 2016 13:51 - CONCLUSION: 1. Left mid lung and base infiltration characteristic of either acute pneumonitis or post radiation pneumonitis. 2. Right internal jugular Savfbd-p-Mxim in good position. Karl Davison MD CT Angiography 10/16/16 0000 Signed Impressions: Service Date/Time: Sunday, October 16, 2016 17:48 - CONCLUSION: 1. Negative for pulmonary embolus. 2. Multifocal consolidation in the left lung which could be related to radiation changes and fibrosis with traction bronchiectasis. Small left effusion. 3. Basilar dependent calcification or radiopaque barium which could be related to prior aspiration. Juan Villeda MD Physical Exam VITAL SIGNS: Temperature 97.8, blood pressure 130/64, respiratory rate 20, heart rate 96. HEENT: Head is atraumatic. Extraocular movements grossly intact, pupils reactive to light. No icterus. Oropharynx, moist mucosa without lesions. Neck: Supple without adenopathy. Lungs: Decreased breath sounds throughout. Heart: Regular S1-S2 without murmurs. Chest: Bigwnl-N-Vetk in place at the right chest and that appears intact. Abdomen: Bowel sounds present, soft, no tenderness. No mass palpable. Extremities: No clubbing or cyanosis or edema. Skin: No rash. Neuro: No gross focal findings. Awake, alert Assessment & Plan Remarks IMPRESSION 1. Lung infiltrate, probably likely secondary to radiation versus aspiration pneumonia. 2. Lung cancer. The patient does not have fever or elevated white blood cell count. He does not seem to have pleuritic chest pain, so therefore it may be due to radiation pneumonitis. However, given the infiltrate involving both mid and lower lung, we would need to make sure he does not have bacterial pneumonia, and therefore antibiotics should be continued to see if he responds. RECOMMENDATIONS 1. Continue Levaquin, will switch to po 2. Monitor clinical status and chest x-ray. 3. Sputum clx if feasible Ying Guan MD Oct 18, 2016 20:16
[2016-10-18] MEDS: POLYETHYLENE GLYCOL 17 GM PKG PO SCH (20:19)
[2016-10-18] MEDS: NORTRIPTYLINE HCL 10 MG CAP PO SCH (20:22)
[2016-10-19 00:38] VITALS: BP 150/71; PULSE 80; RESP 12; TEMP 97.9; O2SAT 96
[2016-10-19] MEDS: LEVOTHYROXINE SODIUM 100 MCG TAB PO SCH (06:52)
[2016-10-19] MEDS: HEPARIN SODIUM - SQ 10,000 UNITS/ML VIAL SQ SCH ×3 (06:52→20:29)
[2016-10-19] MEDS: INSULIN ASPART SUPPLEMENTAL SCALE SQ SCH ×4 (07:00→20:34)
[2016-10-19 08:00] VITALS: BP 121/74; PULSE 95; RESP 18; TEMP 97.4; O2SAT 93; O2SAT 95
[2016-10-19] MEDS: SODIUM CHLORIDE 0.9% FLUSH 10 ML FLUSH IV FLUSH SCH ×2 (08:32→20:28)
[2016-10-19] MEDS: URSODIOL 300 MG CAP PO SCH ×2 (08:33→20:26)
[2016-10-19] MEDS: MYCOPHENOLATE MOFETIL 500 MG TAB PO SCH ×2 (08:34→20:25)
[2016-10-19] MEDS: PANTOPRAZOLE SOD 20 MG DELAYED RELEASE TAB PO SCH (08:34)
[2016-10-19] MEDS: MEGESTROL ACETATE 40 MG TAB PO SCH ×4 (08:36→20:25)
[2016-10-19] MEDS: PREGABALIN 75 MG CAP PO SCH ×2 (08:36→20:24)
[2016-10-19] MEDS: predniSONE 5 MG TAB PO SCH (08:36)
[2016-10-19] MEDS: ALLOPURINOL 100 MG TAB PO SCH (08:36)
[2016-10-19] MEDS: POLYETHYLENE GLYCOL 17 GM PKG PO SCH (08:37)
[2016-10-19 12:00] VITALS: BP 131/76; PULSE 87; RESP 19; TEMP 98.2; O2SAT 93
--- NOTE | 2016-10-19 12:02 | HHI.PR ---
Subjective Remarks Follow-up community-acquired bacteria pneumonia 10/18/16-patient seen and examined; tired and sleepy. Afebrile. by the bedside and states patient has been quite tired today with decrease by mouth intake 10/19/16-patient seen and examined, patient is much more alert today. Afebrile. Good urine output. by the bedside. Objective Vitals Vital Signs Date Time Temp Pulse Resp B/P Pulse Ox O2 Delivery O2 Flow Rate FiO2 10/19/16 08:00 95 21 10/19/16 08:00 97.4 95 18 121/74 93 10/19/16 00:38 97.9 80 12 150/71 96 10/18/16 20:20 96.1 82 12 142/64 98 10/18/16 19:58 96 21 10/18/16 16:26 97.8 87 19 124/69 96 10/18/16 12:32 96.7 82 19 142/82 98 I/O 10/18/16 10/18/16 10/18/16 10/19/16 10/19/16 10/19/16 06:59 14:59 22:59 06:59 14:59 22:59 Intake Total 300 ml 850 ml Output Total 700 ml 200 ml 520 ml 800 ml Balance -400 ml -200 ml 330 ml -800 ml Intake Oral 300 ml 850 ml Output Urine Total 700 ml 200 ml 520 ml 800 ml # Voids 3 Result Diagram: 10/16/16 1335 10/16/16 1335 Imaging Last Impressions Head CT 10/16/16 1246 Signed Impressions: Service Date/Time: Sunday, October 16, 2016 13:11 - CONCLUSION: Atrophy, moderate vascular calcifications, negative for acute process. Shaka Higuera MD FACR Chest X-Ray 10/16/16 1246 Signed Impressions: Service Date/Time: Sunday, October 16, 2016 13:51 - CONCLUSION: 1. Left mid lung and base infiltration characteristic of either acute pneumonitis or post radiation pneumonitis. 2. Right internal jugular Acylko-e-Pghr in good position. Karl Davison MD CT Angiography 10/16/16 0000 Signed Impressions: Service Date/Time: Sunday, October 16, 2016 17:48 - CONCLUSION: 1. Negative for pulmonary embolus. 2. Multifocal consolidation in the left lung which could be related to radiation changes and fibrosis with traction bronchiectasis. Small left effusion. 3. Basilar dependent calcification or radiopaque barium which could be related to prior aspiration. Juan Villeda MD Objective Remarks GENERAL: NAD SKIN: Warm and dry. HEAD: Normocephalic. EYES: No scleral icterus. No injection or drainage. NECK: Supple, trachea midline. No JVD or lymphadenopathy. CARDIOVASCULAR: Regular rate and rhythm without murmurs, gallops, or rubs. RESPIRATORY: Breath sounds equal bilaterally. No accessory muscle use. GASTROINTESTINAL: Abdomen soft, non-tender, nondistended. MUSCULOSKELETAL: No cyanosis, or edema. BACK: Nontender without obvious deformity. No CVA tenderness. A/P Problem List: (1) Pneumonia ICD Code: J18.9 Status: Acute (2) Weakness ICD Code: R53.1 Status: Acute (3) Non-small cell carcinoma of lung ICD Code: C34.90 Status: Acute (4) Liver transplant status ICD Code: Z94.4 Status: Acute Assessment and Plan 81-year-old man with Community-acquired bacteria pneumonia Currently on Levaquin Appreciate input from ID Metabolic encephalopathy Improving Secondary to above infectious process History of lung cancer Appreciate input from medical oncology, who signed off History of liver transplant Continue with CellCept Hypothyroidism Continue with Synthroid DVT prophylaxis: Heparin Discharge Planning Likely discharge within the next 48 hours Problem Qualifiers (1) Pneumonia: Bola Souza MD Oct 19, 2016 12:02
[2016-10-19] MEDS: LEVOFLOXACIN 750 MG PREMIX INJ 150 ML IV SCH (15:35)
[2016-10-19 16:00] VITALS: BP 104/79; PULSE 101; RESP 18; TEMP 97.9; O2SAT 93
[2016-10-19 19:30] VITALS: O2SAT 96
[2016-10-19 20:25] VITALS: BP 106/69; PULSE 97; RESP 12; TEMP 98.5; O2SAT 92
[2016-10-19] MEDS: NORTRIPTYLINE HCL 10 MG CAP PO SCH (20:25)
[2016-10-20 00:25] VITALS: BP 139/70; PULSE 84; RESP 12; TEMP 98; O2SAT 91
[2016-10-20] MEDS: LEVOTHYROXINE SODIUM 100 MCG TAB PO SCH (06:20)
[2016-10-20] MEDS: HEPARIN SODIUM - SQ 10,000 UNITS/ML VIAL SQ SCH ×3 (06:21→21:25)
[2016-10-20 08:00] VITALS: BP 115/70; PULSE 93; RESP 18; TEMP 97.3; O2SAT 96
[2016-10-20] MEDS: POLYETHYLENE GLYCOL 17 GM PKG PO SCH (09:00)
[2016-10-20] MEDS: MYCOPHENOLATE MOFETIL 500 MG TAB PO SCH ×2 (09:03→20:11)
[2016-10-20] MEDS: INSULIN ASPART SUPPLEMENTAL SCALE SQ SCH ×4 (09:03→21:00)
[2016-10-20] MEDS: URSODIOL 300 MG CAP PO SCH ×2 (09:03→20:11)
[2016-10-20] MEDS: SODIUM CHLORIDE 0.9% FLUSH 10 ML FLUSH IV FLUSH SCH ×2 (09:03→20:44)
[2016-10-20] MEDS: MEGESTROL ACETATE 40 MG TAB PO SCH ×4 (09:04→20:11)
[2016-10-20] MEDS: predniSONE 5 MG TAB PO SCH (09:04)
[2016-10-20] MEDS: PREGABALIN 75 MG CAP PO SCH ×2 (09:05→20:11)
[2016-10-20] MEDS: PANTOPRAZOLE SOD 20 MG DELAYED RELEASE TAB PO SCH (09:05)
[2016-10-20] MEDS: ALLOPURINOL 100 MG TAB PO SCH (09:13)
--- NOTE | 2016-10-20 11:41 | HHI.PR ---
Subjective Remarks Patient seen in follow-up for pneumonia, encephalopathy. He is seen with his at the bedside. He is more alert today. Breathing more comfortable. Does get short of breath with activity. Still feel very weak. Objective Vitals Vital Signs Date Time Temp Pulse Resp B/P Pulse Ox O2 Delivery O2 Flow Rate FiO2 10/20/16 08:00 97.3 93 18 115/70 96 10/20/16 00:25 98.0 84 12 139/70 91 10/19/16 20:25 98.5 97 12 106/69 92 10/19/16 19:30 96 21 10/19/16 16:00 97.9 101 18 104/79 93 10/19/16 12:00 98.2 87 19 131/76 93 I/O 10/19/16 10/19/16 10/19/16 10/20/16 10/20/16 10/20/16 07:00 15:00 23:00 07:00 15:00 23:00 Intake Total 360 ml Output Total 800 ml 200 ml 800 ml 300 ml Balance -800 ml 160 ml -800 ml -300 ml Intake Oral 360 ml Output Urine Total 800 ml 200 ml 800 ml 300 ml # Bowel Movements 1 Result Diagram: 10/16/16 1335 10/16/16 1335 Imaging Last Impressions Head CT 10/16/16 1246 Signed Impressions: Service Date/Time: Sunday, October 16, 2016 13:11 - CONCLUSION: Atrophy, moderate vascular calcifications, negative for acute process. Shaka Higuera MD FACR Chest X-Ray 10/16/16 1246 Signed Impressions: Service Date/Time: Sunday, October 16, 2016 13:51 - CONCLUSION: 1. Left mid lung and base infiltration characteristic of either acute pneumonitis or post radiation pneumonitis. 2. Right internal jugular Lleswh-z-Lbcq in good position. Karl Davison MD CT Angiography 10/16/16 0000 Signed Impressions: Service Date/Time: Sunday, October 16, 2016 17:48 - CONCLUSION: 1. Negative for pulmonary embolus. 2. Multifocal consolidation in the left lung which could be related to radiation changes and fibrosis with traction bronchiectasis. Small left effusion. 3. Basilar dependent calcification or radiopaque barium which could be related to prior aspiration. Juan Villeda MD Objective Remarks GENERAL: Elderly and frail male, in no apparent distress. CARDIOVASCULAR: Normal rate and regular rhythm without murmurs, gallops, or rubs. RESPIRATORY: Good respiratory efforts. Breath sounds equal and clear to auscultation bilaterally. GASTROINTESTINAL: Abdomen soft, non-tender, non-distended. Normal active bowel sounds MUSCULOSKELETAL: Extremities without cyanosis, or edema. NEURO: Alert & Oriented x4 to person, place, time, situation. Moves all ext x4 but is generally weak PSYCH: Appropriate mood and affect. A/P Problem List: (1) Pneumonia ICD Code: J18.9 Status: Acute (2) Weakness ICD Code: R53.1 Status: Acute (3) Non-small cell carcinoma of lung ICD Code: C34.90 Status: Acute (4) Liver transplant status ICD Code: Z94.4 Status: Acute Assessment and Plan 81-year-old male with Community-acquired bacteria pneumonia Currently on Levaquin, transition to oral. Appreciate input from ID Metabolic encephalopathy Improving Secondary to above infectious process History of lung cancer Appreciate input from medical oncology, who signed off History of liver transplant Continue with CellCept Hypothyroidism Continue with Synthroid Physical deconditioning: Secondary to infectious process and comorbid conditions above. Continue daily PT. Discussed with his . They want to go home instead of a [facility] facility. PT to re-eval. He may do okay with home health/PT. DVT prophylaxis: Heparin Discharge Planning Possible dc tomorrow with HHC/PT Problem Qualifiers (1) Pneumonia: Marcus Stephens MD Oct 20, 2016 11:41
[2016-10-20 12:00] VITALS: BP 125/72; PULSE 94; RESP 17; TEMP 97.5; O2SAT 92
[2016-10-20 16:00] VITALS: BP 129/74; PULSE 98; RESP 19; TEMP 97.2; O2SAT 94
[2016-10-20] MEDS: LEVOFLOXACIN 750 MG PREMIX INJ 150 ML IV SCH (16:36)
[2016-10-20] MEDS: ACETAMINOPHEN 325 MG TAB PO PRN (16:36)
[2016-10-20 19:40] VITALS: O2SAT 96
[2016-10-20] MEDS: NORTRIPTYLINE HCL 10 MG CAP PO SCH (20:11)
[2016-10-20 21:00] VITALS: BP 120/69; PULSE 100; RESP 20; TEMP 97.9; O2SAT 96
[2016-10-21 01:07] VITALS: BP 110/67; PULSE 89; RESP 24; TEMP 98.2; O2SAT 92
[2016-10-21] MEDS: LEVOTHYROXINE SODIUM 100 MCG TAB PO SCH (05:53)
[2016-10-21] MEDS: HEPARIN SODIUM - SQ 10,000 UNITS/ML VIAL SQ SCH (05:53)
[2016-10-21 08:00] VITALS: BP 122/72; PULSE 89; RESP 18; TEMP 97.2; O2SAT 94
[2016-10-21] MEDS: predniSONE 5 MG TAB PO SCH (08:52)
[2016-10-21] MEDS: URSODIOL 300 MG CAP PO SCH (08:53)
[2016-10-21] MEDS: PANTOPRAZOLE SOD 20 MG DELAYED RELEASE TAB PO SCH (08:53)
[2016-10-21] MEDS: MEGESTROL ACETATE 40 MG TAB PO SCH ×2 (08:53→11:04)
[2016-10-21] MEDS: ALLOPURINOL 100 MG TAB PO SCH (08:53)
[2016-10-21] MEDS: PREGABALIN 75 MG CAP PO SCH (08:54)
[2016-10-21] MEDS: MYCOPHENOLATE MOFETIL 500 MG TAB PO SCH (08:54)
[2016-10-21] MEDS: SODIUM CHLORIDE 0.9% FLUSH 10 ML FLUSH IV FLUSH SCH (08:55)
[2016-10-21] MEDS: POLYETHYLENE GLYCOL 17 GM PKG PO SCH (08:55)
[2016-10-21] MEDS: INSULIN ASPART SUPPLEMENTAL SCALE SQ SCH ×2 (09:00→11:07)
[2016-10-21] MEDS ORDERED: LEVOFLOXACIN 750 MG TAB PO SCH (09:00)
[2016-10-21] MEDS ORDERED: LEVA750T9 PO (09:26)
--- NOTE | 2016-10-21 09:26 | HHI.DS ---
Discharge Summary Admission Date Oct 16, 2016 at 14:46 Discharge Date: Oct 21, 2016 Admitting Diagnosis PNEUMONIA (1) Pneumonia ICD Code: J18.9 (2) Weakness ICD Code: R53.1 (3) Non-small cell carcinoma of lung ICD Code: C34.90 (4) Liver transplant status ICD Code: Z94.4 Procedures None Brief History - From Admission History of present illness from the admitting physician Patient is an 81-year-old gentleman with a history of lung cancer recently undergone radiation. He was in chemotherapy but it was cut short due to poor bone marrow response. The patient presents to the emergency room with his who says that he is more confused and more weak over the last several days. Over the last few weeks he has been sleeping more and not eating well. Over the last 4-5 days he is becoming worse. He does have history of COPD and lung cancer which is being treated. He has not been more short of breath but he's been sleeping a lot. In fact in the emergency room he is hypoxemic at 90%. Patient is anemic also this is not a new problem. Patient has been using a walker but now uses a wheelchair because he is unsteady and she is worried that he will fall. The patient's come to the emergency room for these evaluations and has been found to have pneumonia on x-ray. CT of the head was done which is unremarkable. Patient is on immunosuppressive therapy because of a lung transplant which is done in late . Here he does not have a white cell count elevation does not have a fever but appears quite weak and pale and is concerning for severe pneumonia in immunocompromised host Imaging Last Impressions Head CT 10/16/16 1246 Signed Impressions: Service Date/Time: Sunday, October 16, 2016 13:11 - CONCLUSION: Atrophy, moderate vascular calcifications, negative for acute process. Shaka Higuera MD FACR Chest X-Ray 10/16/16 1246 Signed Impressions: Service Date/Time: Sunday, October 16, 2016 13:51 - CONCLUSION: 1. Left mid lung and base infiltration characteristic of either acute pneumonitis or post radiation pneumonitis. 2. Right internal jugular [id number] in good position. Karl Davison MD CT Angiography 10/16/16 0000 Signed Impressions: Service Date/Time: Sunday, October 16, 2016 17:48 - CONCLUSION: 1. Negative for pulmonary embolus. 2. Multifocal consolidation in the left lung which could be related to radiation changes and fibrosis with traction bronchiectasis. Small left effusion. 3. Basilar dependent calcification or radiopaque barium which could be related to prior aspiration. Juan Villeda MD PE at Discharge GENERAL: Elderly and frail male, in no apparent distress. CARDIOVASCULAR: Normal rate and regular rhythm without murmurs, gallops, or rubs. RESPIRATORY: Good respiratory efforts. Breath sounds equal and clear to auscultation bilaterally. GASTROINTESTINAL: Abdomen soft, non-tender, non-distended. Normal active bowel sounds MUSCULOSKELETAL: Extremities without cyanosis, or edema. NEURO: Alert & Oriented x4 to person, place, time, situation. Moves all ext x4 but is generally weak PSYCH: Appropriate mood and affect. Pt update on day of discharge Patient reports is feeling okay. Discuss with PT. He is still physically very deconditioned. Discussed with his who agreed for SNF placement. Hospital Course 81-year-old male admitted with community-acquired bacterial pneumonia and metabolic encephalopathy. Evaluation and treatment course detailed below: Community-acquired bacteria pneumonia: The patient was treated with IV Levaquin. He was followed by infectious disease. He was transitioned to oral Levaquin and discharged on the same to complete the course of antibiotics. - Symptoms much improved. Patient stable on room air by the time of discharge. Metabolic encephalopathy: This was likely secondary to the infectious process above. Significantly improved with treatment above. Patient is at baseline by the time of discharge. History of lung cancer: Patient was seen by oncologist. No new workup indicated. Oncology signed off. History of liver transplant Continue with CellCept Hypothyroidism Continue with Synthroid Physical deconditioning: Secondary to infectious process and comorbid conditions above. Patient is discharged to SNF to continue rehabilitation efforts. Pt Condition on Discharge: Stable Discharge Disposition: Discharge to SNF Discharge Time: > 30 minutes Discharge Instructions DIET: Follow Instructions for: As Tolerated, No Restrictions Activities you can perform: Regular-No Restrictions Follow up Referrals: PCP Follow-up - 1 Week New Medications: Levofloxacin (Levaquin) 750 Mg Tablet 750 MG PO DAILY #7 TAB Continued Medications: Albuterol 18 GM Inh (Ventolin Hfa 18 GM Inh) 90 Mcg/Act Aer 2 PUFF INH Q4-6H PRN SHORTNESS OF BREATH #1 Ref 0 INHALER Allopurinol (Allopurinol) 100 Mg Tab 100 MG PO DAILY Gout #30 Ref 0 TAB Cholecalciferol (D-2000 Maximum Strength) 2,000 Unit Tab 2000 UNITS PO DAILY Nutritional Supplement #30 Ref 0 TAB Folic Acid (Folic Acid) 800 Mcg Tab 800 MCG PO DAILY Nutritional Supplement Ref 0 TAB Insulin Glargine Inj (Lantus Solostar Pen Inj) 300 Unit/3 Ml Pen 1 UNITS SQ Blood Sugar Management Ref 0 PEN Insulin Regular (Human) (Afrezza 4 & 8 & 12 Unit) 1 Pow Pow Levothyroxine (Levothyroxine) 100 Mcg Tab 100 MCG PO DAILY Thyroid #30 Ref 0 TAB Megestrol (Megestrol) 40 Mg Tab 40 MG PO QID Ref 0 TAB Mycophenolate (Mycophenolate) 500 Mg Tab 1000 MG PO BID Immunosuppression #120 Ref 0 TAB Nortriptyline (Nortriptyline) 10 Mg Cap 10 MG PO HS Depression Control Ref 0 CAP Omeprazole (Omeprazole) 20 Mg Tab 20 MG PO DAILY #30 Ref 0 TAB Polyethylene Glycol 3350 (Miralax) 17 Gm Powd.pack Prednisone (Prednisone) 2.5 Mg Tab 2.5 MG PO DAILY Ref 0 TAB Pregabalin (Lyrica) 150 Mg Cap 150 MG PO BID #60 Ref 0 CAP Ursodiol (Ursodiol) 300 Mg Cap 300 MG PO BID Gallstones #60 Ref 0 CAP Discontinued Medications: Clotrimazole Topical (Clotrimazole Topical) 1% Soln 1 APPLIC TOPICAL BID Fungal Infection #10 Ref 0 ML Guaifenesin (Guaifenesin) 400 Mg Tab Morphine ER (Morphine ER) 30 Mg Tab 15 MG PO Q8H Pain Management Ref 0 TAB Oxycodone (Oxycodone) 5 Mg Cap 5 MG PO Q6H PRN PAIN Ref 0 CAP Marcus Stephens MD Oct 21, 2016 09:26
[2016-10-21 12:00] VITALS: BP 116/71; PULSE 96; RESP 20; TEMP 97.5; O2SAT 94
== END 2016-10-21 15:05 | DRG 190 ==
LOC: PHED 12:23 → PHEDA 14:46 → PH3A 16:14
PROVIDERS: ADMIT Family Medicine; ATTEND Family Medicine
DX: J44.0 Chronic obstructive pulmonary disease with (acute) lower respiratory infection (principal); J15.9 Unspecified bacterial pneumonia; G93.41 Metabolic encephalopathy; Z94.4 Liver transplant status; E11.40 Type 2 diabetes mellitus with diabetic neuropathy, unspecified; D64.9 Anemia, unspecified; C34.90 Malignant neoplasm of unspecified part of unspecified bronchus or lung; R09.02 Hypoxemia; Z92.3 Personal history of irradiation; Z85.51 Personal history of malignant neoplasm of bladder; E03.9 Hypothyroidism, unspecified; I10 Essential (primary) hypertension; Z87.891 Personal history of nicotine dependence
CPT/HCPCS: 70450; 71010; 71275; 80053; 81001; 82948; 83605; 83880; 84484; 85025; 85610; 85730; 87040; 93005; 96365; J0696; J1642; J1644; J1815; J1956; J7030; J7512; J7517; Q9967

== ENCOUNTER 2016-12-11 20:52 | Emergency (ER) | payer MEDICARE, OTHER ==
[~2016-12-11] VITALS: Ht 177.8 cm; Wt 69.4 kg
[~2016-12-11 20:52] MED LIST changes: -ALLO100 PO; +ALLO100T PO; -ASPI81 PO; -CALTTAB2 PO; -CENTTAB9 PO; +D-20TAB3 PO; -FERR324T4 PO; -FOLI1TAB PO; +FOLI800T PO; +INSU1POW25; +LANTINJ SQ; +LEVA750T9 PO; +LEVO100T5 PO; -LEVO50TA4 PO; -LEVOFLOXACIN PO; +LYRI150C PO; +MEGE40TA PO; -MIRA33502 PO; -MS C30TA5 PO; +MYCO500T PO; -NEUR800T PO; -NIAS10004 PO; +NORT10CA PO; -NOVOLOGMXP SQ; -OMEP20CA5 PO; +OMEP20TA PO; -OXYC5 PO; -PAME10CA PO; +POLY17PO3; +PRED2.5T PO; -PRED5TAB; -PRIN10TA PO; -SLEE25TA PO; +URSO300C2 PO; +VENTAER INH; -[UNRECOGNIZED DRUG - CODE] PO
[2016-12-11 21:16] VITALS: BP 120/58; PULSE 61; RESP 16; TEMP 97.4; O2SAT 97
--- NOTE | 2016-12-11 23:24 | PD ---
HPI Chief Complaint: Complaint Time Seen by Provider: 23:14 Travel History International Travel<30 days: No Contact w/Intl Traveler<30days: No Traveled to known affect area: No History of Present Illness HPI The patient is an 81-year-old male that noticed blood in urine 45 minutes prior to coming in. He denies any pain. He does have a history of bladder cancer and is followed at the [facility] for this in [place]. According to his , He has not been drinking adequate fluids today and has not urinated since this morning. PFSH Past Medical History Cancer: Yes (BLADDER, lung) Cardiovascular Problems: Yes (HX HTN) Chemotherapy: Yes (LAST DOSE: AUGUST 2016) COPD: Yes Diabetes: Yes (ON INSULIN) Patient Takes Glucophage: No Diminished Hearing: No Glaucoma: No Hepatitis: Yes (CIRRHOSIS) Hiatal Hernia: No Hypertension: Yes Kidney Stones: No Medical other: Yes (S/P LIVER TRANSPLANT, Neuropathy ) Neurologic: Yes Reproductive: No Respiratory: Yes (LUNG CANCER) Radiation Therapy: Yes Renal Failure: No Thyroid Disease: Yes Tetanus Vaccination: < 5 Years Past Surgical History Abdominal Surgery: Yes (LIVER TRANSPLANT, colostomy, bowel resection, colostomy reversal) Genitourinary Surgery: Yes (CYSTO) Gynecologic Surgery: No Neurologic Surgery: Yes (CERVICAL LAMINECTOMY) Oral Surgery: Yes (T & A) Pacemaker: No Tonsillectomy: Yes Other Surgery: Yes (Neck surgery ) Social History Alcohol Use: No (Quit ) Tobacco Use: No (QUIT 1984) Substance Use: No Allergies-Medications (Allergen,Severity, Reaction): Coded Allergies: Pork/Porcine Containing Products (Unverified Allergy, Severe, 10/22/16) beef derived (bovine) (Unverified Allergy, Severe, 10/22/16) amoxicillin (Verified Allergy, Intermediate, Rash, 12/11/16) azithromycin (Verified Allergy, Intermediate, Rash, 12/11/16) clavulanic acid (Verified Allergy, Intermediate, Rash, 12/11/16) peas (Unverified Adverse Reaction, Severe, VOMITING, 12/11/16) Reported Meds & Prescriptions Reported Meds & Active Scripts Active Reported Ventolin Hfa 18 GM Inh (Albuterol Sulfate) 90 Mcg/Act Aer 2 Puff INH Q4-6H PRN Ursodiol 300 Mg Cap 300 Mg PO BID Lyrica (Pregabalin) 150 Mg Cap 150 Mg PO BID Prednisone 2.5 Mg Tab 2.5 Mg PO DAILY Miralax (Polyethylene Glycol 3350) 17 Gm Powd.pack Omeprazole 20 Mg Tab 20 Mg PO DAILY Nortriptyline (Nortriptyline HCl) 10 Mg Cap 10 Mg PO HS Mycophenolate (Mycophenolate Mofetil) 500 Mg Tab 500 Mg PO BID Levothyroxine (Levothyroxine Sodium) 100 Mcg Tab 100 Mcg PO DAILY Lantus Solostar Pen Inj (Insulin Glargine) 300 Unit/3 Ml Pen 4-10 Units SQ Afrezza 4 & 8 & 12 Unit (Insulin Regular (Human)) 1 Pow Pow Folic Acid 800 Mcg Tab 1,000 Mcg PO DAILY D-2000 Maximum Strength (Cholecalciferol) 2,000 Unit Tab 2,000 Units PO DAILY Allopurinol 100 Mg Tab 100 Mg PO DAILY Review of Systems Except as stated in HPI: all other systems reviewed are Neg Physical Exam Narrative GENERAL: The patient is alert, oriented 3, moderately dehydrated appearing in no apparent distress. His vital signs are normal. SKIN: Focused skin assessment warm/dry. HEAD: Atraumatic. Normocephalic. EYES: Pupils equal and round. No scleral icterus. No injection or drainage. ENT: No nasal bleeding or discharge. Mucous membranes pink and moist. NECK: Trachea midline. No JVD. CARDIOVASCULAR: Regular rate and rhythm. No murmur appreciated. RESPIRATORY: No accessory muscle use. Clear to auscultation. Breath sounds equal bilaterally. GASTROINTESTINAL: Abdomen soft, non-tender, nondistended. Hepatic and splenic margins not palpable. No guarding or rebound is present in the bladder is not distended. MUSCULOSKELETAL: No obvious deformities. No clubbing. No cyanosis. No edema. NEUROLOGICAL: Awake and alert. No obvious cranial nerve deficits. Motor grossly within normal limits. Normal speech. PSYCHIATRIC: Appropriate mood and affect; insight and judgment normal. Data Data Last Documented VS Vital Signs Date Time Temp Pulse Resp B/P (MAP) Pulse Ox O2 Delivery O2 Flow Rate FiO2 12/12/16 01:40 87 18 140/70 (93) 94 Room Air 12/12/16 00:30 2.00 12/11/16 21:16 97.4 Orders Orders Complete Blood Count With Diff (12/11/16 23:14) Comprehensive Metabolic Panel (12/11/16 23:14) Prothrombin Time / Inr (Pt) (12/11/16 23:14) Act Partial Throm Time (Ptt) (12/11/16 23:14) Urinalysis - C+S If Indicated (12/11/16 23:14) Sodium Chlor 0.9% 1000 Ml Inj (Ns 1000 M (12/11/16 23:30) Sodium Chlor 0.9% 1000 Ml Inj (Ns 1000 M (12/12/16 01:15) Labs Laboratory Tests Test 12/11/16 23:25 12/12/16 01:35 White Blood Count 5.1 TH/MM3 Red Blood Count 3.15 MIL/MM3 Hemoglobin 9.5 GM/DL Hematocrit 30.3 % Mean Corpuscular Volume 96.0 FL Mean Corpuscular Hemoglobin 30.2 PG Mean Corpuscular Hemoglobin Concent 31.5 % Red Cell Distribution Width 18.8 % Platelet Count 83 TH/MM3 Mean Platelet Volume 8.2 FL Neutrophils (%) (Auto) 79.1 % Lymphocytes (%) (Auto) 8.1 % Monocytes (%) (Auto) 7.7 % Eosinophils (%) (Auto) 1.8 % Basophils (%) (Auto) 3.3 % Neutrophils # (Auto) 4.0 TH/MM3 Lymphocytes # (Auto) 0.4 TH/MM3 Monocytes # (Auto) 0.4 TH/MM3 Eosinophils # (Auto) 0.1 TH/MM3 Basophils # (Auto) 0.2 TH/MM3 CBC Comment DIFF FINAL Differential Comment Prothrombin Time 12.0 SEC Prothromb Time International Ratio 1.1 RATIO Activated Partial Thromboplast Time 26.4 SEC Blood Urea Nitrogen 28 MG/DL Creatinine 1.10 MG/DL Random Glucose 169 MG/DL Total Protein 6.2 GM/DL Albumin 2.6 GM/DL Calcium Level 9.1 MG/DL Alkaline Phosphatase 133 U/L Aspartate Amino Transf (AST/SGOT) 13 U/L Alanine Aminotransferase (ALT/SGPT) 15 U/L Total Bilirubin 0.4 MG/DL Sodium Level 142 MEQ/L Potassium Level 4.0 MEQ/L Chloride Level 105 MEQ/L Carbon Dioxide Level 30.7 MEQ/L Anion Gap 6 MEQ/L Estimat Glomerular Filtration Rate 64 ML/MIN Urine Color RED Urine Turbidity CLOUDY Urine pH 5.5 Urine Specific [place] 1.020 Urine Protein 300 OR GREATER mg/dL Urine Glucose (UA) NEG mg/dL Urine Ketones NEG mg/dL Urine Occult Blood LARGE Urine Nitrite NEG Urine Bilirubin NEG Urine Leukocyte Esterase NEG Urine RBC INNUM /hpf Urine WBC 3-5 /hpf Urine Squamous Epithelial Cells 0-5 /hpf Urine Amorphous Sediment LARGE Urine Bacteria FEW /hpf Microscopic Urinalysis Comment CULT NOT INDICATED MDM Medical Decision Making Medical Screen Exam Complete: Yes Emergency Medical Condition: Yes Medical Record Reviewed: Yes Interpretation(s) The CBC shows a hemoglobin of 9.5 with hematocrit of 30.3 and platelet count of 83,000 but is otherwise unremarkable. The quite ashen profile shows a ProTime of low 0.0 but is otherwise normal. The complete metabolic profile shows a BUN of 28 with GFR of 64 and glucose 169 and alkaline phosphatase of 133 and total protein of 6.2 and albumin 2.6 but is otherwise normal. The urine shows red color, cloudy turbidity, 300 or greater protein with large occult blood and innumerable red cells and only 3-5 white cells and large amorphous sediment and few bacteria and culture is not indicated. Differential Diagnosis Hematuria from bladder cancer, urinary tract infection, dehydration, electrolyte disorder, renal insufficiency, anemia Narrative Course The patient's main problem tonight was dehydration. It took 3 L of saline before he could give us some urine. He also has hematuria which is likely from bladder cancer. There is no evidence of infection of the urine. The patient also has anemia with hematuria. He has had these problems before following chemotherapy. He needs to follow-up with his oncology doctors/urologist. Diagnosis Primary Impression: Gross hematuria Additional Impressions: Bladder cancer Anemia Additional Instructions: As we discussed, he needs to hydrate himself better at home. Follow-up with his oncology/urology physicians. The primary care physician may have some juices intestines on how to hydrate himself at home better. Disposition: 01 DISCHARGE HOME Condition: Stable Jp Mendoza MD Dec 11, 2016 23:24
[2016-12-11 23:25] VITALS: BP 95/60; PULSE 89; RESP 18; O2SAT 92
[2016-12-11] MEDS: SODIUM CHLOR 0.9% 1000 ML INJ 1,000 ML IV SCH (23:38)
[2016-12-11 23:39] LABS: BASOPHIL # 0.2 TH/MM3 (0-0.2); BASOPHIL % 3.3 % (0.0-2.0); EOSINOPHIL # 0.1 TH/MM3 (0-0.4); EOSINOPHIL % 1.8 % (0.0-4.0); HEMATOCRIT 30.3 % (39.0-51.0); LYMPH % 8.1 % (9.0-44.0); LYMPHOCYTE # 0.4 TH/MM3 (1.0-4.8); MEAN CORPUSCULAR HEMOGLOBIN 30.2 PG (27.0-34.0); MEAN CORPUSCULAR HGB CONC 31.5 % (32.0-36.0); MONO % 7.7 % (0.0-8.0); NEUT % 79.1 % (16.0-70.0); PLATELET COUNT 83 TH/MM3 (150-450); RED BLOOD COUNT 3.15 MIL/MM3 (4.50-5.90); RED CELL DISTRIBUTION WIDTH 18.8 % (11.6-17.2); WHITE BLOOD COUNT 5.1 TH/MM3 (4.0-11.0)
[2016-12-11 23:41] LABS: HEMO FLAGS DIFF FINAL
[2016-12-11 23:46] LABS: CHLORIDE 105 MEQ/L (98-107); SODIUM (NA) 142 MEQ/L (136-145)
[2016-12-11 23:50] LABS: ANION GAP 6 MEQ/L (5-15); BICARBONATE 30.7 MEQ/L (21.0-32.0); BLOOD UREA NITROGEN 28 MG/DL (7-18)
[2016-12-11 23:52] LABS: APTT (PATIENT) 26.4 SEC (24.3-30.1); INTERNATIONAL NORMALIZED RATIO 1.1 RATIO
[2016-12-11 23:53] LABS: ALT (GPT) 15 U/L (12-78); AST (GOT) 13 U/L (15-37); GLOMERULAR FILTRATION RATE 64 ML/MIN (>89)
[2016-12-11 23:55] LABS: TOTAL BILIRUBIN ADULT 0.4 MG/DL (0.2-1.0)
[2016-12-11 23:56] LABS: ALKALINE PHOSPHATASE 133 U/L (45-117)
[2016-12-12 00:30] VITALS: BP 131/57; PULSE 99; RESP 20; O2SAT 93
[2016-12-12] MEDS: SODIUM CHLOR 0.9% 1000 ML INJ 1,000 ML IV SCH (00:36)
[2016-12-12] MEDS ORDERED: SODIUM CHLOR 0.9% 1000 ML INJ 1,000 ML IV SCH (01:15)
[2016-12-12 01:40] VITALS: BP 140/70; PULSE 87; RESP 18; O2SAT 94
[2016-12-12 01:51] LABS: BLOOD, URINE LARGE (NEG); GLUCOSE,URINE NEG (NEG); KETONE, URINE NEG (NEG); NITRITE,URINE NEG (NEG); PH, URINE 5.5 (5.0-8.5)
[2016-12-12 01:53] LABS: BACTERIA, URINE FEW /hpf; COMMENT (UR) CULT NOT INDICATED; CULTURE IF INDICATED CULT NOT INDICATED; RBC, URINE INNUM /hpf (0-3); SQUAMOUS EPITHELIAL CELL URINE 0-5 /hpf (0-5); URINE COLOR RED (YELLW/STRAW)
[2016-12-13] MEDS ORDERED: FERR325T8 PO (12:37)
== END 2016-12-12 02:18 | disposition home or self-care (01) ==
LOC: PHED 20:52
DX: R31.0 Gross hematuria (principal); D64.9 Anemia, unspecified; E11.9 Type 2 diabetes mellitus without complications; I10 Essential (primary) hypertension; J44.9 Chronic obstructive pulmonary disease, unspecified; E07.9 Disorder of thyroid, unspecified; K74.60 Unspecified cirrhosis of liver; Z85.51 Personal history of malignant neoplasm of bladder; Z94.4 Liver transplant status; Z79.4 Long term (current) use of insulin; Z79.899 Other long term (current) drug therapy; Z85.118 Personal history of other malignant neoplasm of bronchus and lung
CPT/HCPCS: 80053; 81001; 85025; 85610; 85730; 96360; 96361; 99284; J7030

== ENCOUNTER 2016-12-13 12:08 | Inpatient (IN) | payer MEDICARE, OTHER ==
[~2016-12-13] VITALS: Ht 180.3 cm; Wt 90.0 kg
[~2016-12-13 12:08] MED LIST changes: -LEVA750T9 PO; -MEGE40TA PO
[2016-12-13 12:10] VITALS: O2SAT 100
[2016-12-13 12:14] VITALS: BP 118/61; PULSE 126; RESP 30; TEMP 98.5; O2SAT 95
[2016-12-13] MEDS ORDERED: methylPREDNISolone SOD SUCC 125 MG/2 ML VIAL IV PUSH ONE (12:15)
[2016-12-13] MEDS ORDERED: SODIUM CHLORIDE 0.9% FLUSH 10 ML FLUSH IVF PRN (12:15)
[2016-12-13] MEDS ORDERED: FERR325T8 PO (12:37)
[2016-12-13 12:40] VITALS: BP 120/71; PULSE 129; RESP 22; O2SAT 100
[2016-12-13 12:45] LABS: AUTOMATED NEUTROPHIL # 7.9 TH/MM3 (1.8-7.7); BASOPHIL % 0.3 % (0.0-2.0); EOSINOPHIL # 0.1 TH/MM3 (0-0.4); HEMATOCRIT 28.4 % (39.0-51.0); LYMPH % 5.4 % (9.0-44.0); LYMPHOCYTE # 0.5 TH/MM3 (1.0-4.8); MEAN CELL VOLUME 100.9 FL (80.0-100.0); MEAN CORPUSCULAR HGB CONC 31.7 % (32.0-36.0); NEUT % 85.3 % (16.0-70.0); PLATELET COUNT 84 TH/MM3 (150-450); RED BLOOD COUNT 2.82 MIL/MM3 (4.50-5.90); RED CELL DISTRIBUTION WIDTH 20.3 % (11.6-17.2); WHITE BLOOD COUNT 9.2 TH/MM3 (4.0-11.0)
[2016-12-13 12:46] LABS: HEMO FLAGS AUTO DIFF
[2016-12-13 12:47] LABS: PROTHROMBIN TIME - PATIENT 11.4 SEC (9.8-11.6)
--- NOTE | 2016-12-13 12:51 | RADRPT ---
EXAM DATE/TIME: 12/13/2016 12:36 [facility] COMPARISON: CHEST SINGLE AP, October 16, 2016, 13:51. INDICATIONS : Shortness of breath. MEDICAL HISTORY : Carcinoma, lung. Diabetes mellitus type 2. SURGICAL HISTORY : Port placement. ENCOUNTER: Initial ACUITY: 1 day PAIN SCORE: 0/10 LOCATION: Bilateral chest FINDINGS: Large area of consolidation in the left mid and lower lung is slightly more dense than on the prior e xamination October 2016. There is elevation left hemidiaphragm and loss of delineation of the left med iastinal reflections. In the right mid lung, there is a new ill-defined opacity medially suggesting a new mass or infiltrate. The heart is enlarged. [id number] catheter tip in the distal superior antonia a cava. CONCLUSION: 1. Enlarging increasing opacity to the diffuse consolidation involving the left mid and lower lung. 2. New small area of consolidation in the medial right midlung. 3. Jlljea-[id number] unchanged in position from prior examination. No evidence of pneumothorax. Pablito Neely MD on December 13, 2016 at 12:48 Board Certified Radiologist. This report was verified electronically.
[2016-12-13 13:00] LABS: ALT (GPT) 16 U/L (12-78); ANION GAP 7 MEQ/L (5-15); AST (GOT) 12 U/L (15-37); BICARBONATE 29.6 MEQ/L (21.0-32.0); BLOOD UREA NITROGEN 19 MG/DL (7-18); CHLORIDE 109 MEQ/L (98-107); GLOMERULAR FILTRATION RATE 71 ML/MIN (>89); POTASSIUM 4.3 MEQ/L (3.5-5.1); SODIUM (NA) 146 MEQ/L (136-145)
[2016-12-13 13:03] LABS: ALKALINE PHOSPHATASE 157 U/L (45-117); TOTAL BILIRUBIN ADULT 0.6 MG/DL (0.2-1.0)
[2016-12-13 13:11] VITALS: BP 121/85; PULSE 118; RESP 21; O2SAT 100
[2016-12-13 13:21] LABS: BANDS 19 % (0-6); EOSINOPHILS 1 % (0-4); METAMYELOCYTES 1 % (0-1); NEUTROPHIL # MANUAL DIFF 8.4 TH/MM3 (1.8-7.7); POLYS (SEG NEUTROPHILS) 71 % (16-70); WBC DIFF SAMPLE 100
[2016-12-13 13:22] LABS: PLATELET ESTIMATE SMEAR LOW (NORMAL)
[2016-12-13 13:23] LABS: OVALOCYTES 1+ (NORMAL); PLATELET MORPHOLOGY ENLARGED (NORMAL); SCAN/DIFF FINAL DIFF MANUAL
[2016-12-13 13:28] LABS: BLOOD GAS BASE EXCESS 1.2 mmol/L (-2-2); BLOOD GAS HCO3 25 mmol/L (22-26); BLOOD GAS METHEMOGLOBIN 0.3 % (0-2); BLOOD GAS O2 HGB SATURATION 98 % (90-100); BLOOD GAS OXYGEN CONTENT 17.1 Vol % (12.0-20.0); BLOOD GAS PCO2 39 mmHg (38-42); BLOOD GAS PO2 193 mmHG (61-120); BLOOD GAS TOTAL HGB 12.1 G/DL (12.0-16.0); CRITICAL VALUE NO; OXYGEN DEVICE BiPAP; TEMP CORR TO 98.6
[2016-12-13 13:29] LABS: DRAW SITE LT RADIAL; FIO2 100 %; NUMBER OF ARTERIAL PUNCTURES 1; STAT NO; ULNAR PULSE PRESENT; VENT SETTINGS IPAP18/EPAP8
[2016-12-13] MEDS ORDERED: VANCOMYCIN INJ 1,000 MG in SODIUM CHLOR 0.9% 250 ML INJ 250 ML IV ONE (13:30)
[2016-12-13] MEDS ORDERED: SODIUM CHLOR 0.9% 1000 ML INJ 1,000 ML IV ONE (13:30)
[2016-12-13] MEDS ORDERED: AZTREONAM INJ 2,000 MG in SODIUM CHLORIDE 0.9% INJ 100 ML IV ONE (13:30)
[2016-12-13 13:42] LABS: BACTERIA, URINE FEW /hpf; BLOOD, URINE MOD (NEG); COMMENT (UR) CULT NOT INDICATED; CULTURE IF INDICATED CULT NOT INDICATED; GLUCOSE,URINE 70 mg/dL (NEG); KETONE, URINE NEG (NEG); NITRITE,URINE NEG (NEG); PH, URINE 5.5 (5.0-8.5); URINE COLOR YELLOW (YELLW/STRAW)
--- NOTE | 2016-12-13 14:21 | PD ---
HPI Chief Complaint: Respiratory Distress Time Seen by Provider: 12:15 Travel History International Travel<30 days: No Contact w/Intl Traveler<30days: No Traveled to known affect area: No History of Present Illness HPI 81-year-old male came to the emergency room brought by EMS emergently for respiratory distress and hypoxia. Patient has history of dementia and previous history of lung cancer. He is coming from home. As per EMS his noticed that he was having difficulty breathing and she called 911. When EMS arrived his oxygen saturation was in the 70s. No history of chest pain. Patient was given nonrebreather and a breathing treatment en route. He told EMS that he didn't want to be intubated and on a ventilator as per them. Patient seemed confused upon arrival and unable to give significant history. He was tachycardic. [facility] Past Medical History Narrative Medical List of his past medical, surgical, social and family history is reviewed from the nursing note. Hx Anticoagulant Therapy: No Cancer: Yes (BLADDER, lung) Cardiovascular Problems: Yes Chemotherapy: Yes (LAST DOSE: AUGUST 2016) COPD: Yes Diabetes: Yes Patient Takes Glucophage: No Diminished Hearing: No Glaucoma: No Hepatitis: Yes (CIRRHOSIS) Hiatal Hernia: No Hypertension: Yes Kidney Stones: No Neurologic: Yes Reproductive: No Respiratory: Yes (LUNG CANCER ) Immunizations Current: No Radiation Therapy: Yes Renal Failure: No Thyroid Disease: Yes Tetanus Vaccination: < 5 Years Influenza Vaccination: Yes Past Surgical History Abdominal Surgery: Yes (LIVER TRANSPLANT, colostomy, bowel resection, colostomy reversal) Genitourinary Surgery: Yes (CYSTO) Gynecologic Surgery: No Neurologic Surgery: Yes (CERVICAL LAMINECTOMY) Oral Surgery: Yes (T & A) Pacemaker: No Tonsillectomy: Yes Other Surgery: Yes (Neck surgery ) Social History Alcohol Use: No (Quit ) Tobacco Use: No (QUIT 1984) Substance Use: No Allergies-Medications (Allergen,Severity, Reaction): Coded Allergies: Pork/Porcine Containing Products (Unverified Allergy, Severe, 10/22/16) beef derived (bovine) (Unverified Allergy, Severe, 10/22/16) amoxicillin (Verified Allergy, Intermediate, Rash, 12/11/16) azithromycin (Verified Allergy, Intermediate, Rash, 12/11/16) clavulanic acid (Verified Allergy, Intermediate, Rash, 12/11/16) peas (Unverified Adverse Reaction, Severe, VOMITING, 12/11/16) Comments List of his allergies reviewed from the nursing note. Reported Meds & Prescriptions Reported Meds & Active Scripts Active No Active Prescriptions or Reported Medications Narrative Medication List of his home medications reviewed from the nursing note. Review of Systems Except as stated in HPI: all other systems reviewed are Neg Physical Exam Narrative GENERAL: Confused, dementia, elderly, frail, moderate distress SKIN: Focused skin assessment warm/dry. Pale HEAD: Atraumatic. Normocephalic. EYES: Pupils equal and round. No scleral icterus. No injection or drainage. ENT: No nasal bleeding or discharge. Mucous membranes pink and moist. NECK: Trachea midline. No JVD. CARDIOVASCULAR: Regular rate and rhythm. No murmur appreciated. RESPIRATORY: Accessory muscles used and coarse crackles GASTROINTESTINAL: Abdomen soft, non-tender, nondistended. Hepatic and splenic margins not palpable. MUSCULOSKELETAL: No obvious deformities. No clubbing. No cyanosis. No edema. NEUROLOGICAL: GCS of 13. No obvious cranial nerve deficits. Motor grossly within normal limits. Slurred speech. PSYCHIATRIC: Appropriate mood and affect; insight and judgment normal. Data Data Last Documented VS Vital Signs Date Time Temp Pulse Resp B/P (MAP) Pulse Ox O2 Delivery O2 Flow Rate FiO2 12/13/16 13:11 118 21 121/85 (97) 100 BiPAP 100 12/13/16 12:14 98.5 Orders Orders Complete Blood Count With Diff (12/13/16 12:15) Comprehensive Metabolic Panel (12/13/16 12:15) Prothrombin Time / Inr (Pt) (12/13/16 12:15) Magnesium (Mg) (12/13/16 12:15) Troponin I (12/13/16 12:15) Arterial Blood Gas (Abg) (12/13/16 12:15) Urinalysis - C+S If Indicated (12/13/16 12:15) Iv Access Insert/Monitor (12/13/16 12:15) Electrocardiogram (12/13/16 12:15) Ecg Monitoring (12/13/16 12:15) Oximetry (12/13/16 12:15) Oxygen Administration (12/13/16 12:15) Chest, Single Ap (12/13/16 12:15) Sodium Chloride 0.9% Flush (Ns Flush) (12/13/16 12:15) Methylprednisolone So Succ Inj (Solumedr (12/13/16 12:15) Resp Bipap / Cpap Non Invas Vt (12/13/16 12:15) Type And Screen (12/13/16 12:15) Blood Culture (12/13/16 12:15) Lactic Acid (12/13/16 12:15) Aztreonam Inj (Azactam Inj) (12/13/16 13:30) Vancomycin Inj (Vancomycin Inj) (12/13/16 13:30) Sodium Chlor 0.9% 1000 Ml Inj (Ns 1000 M (12/13/16 13:30) Arterial Blood Gas (Abg) (12/13/16 ) Admit Order (Ed Use Only) (12/13/16 14:05) Labs Laboratory Tests Test 12/13/16 12:20 12/13/16 12:25 12/13/16 12:37 12/13/16 13:16 White Blood Count 9.2 TH/MM3 Red Blood Count 2.82 MIL/MM3 Hemoglobin 9.0 GM/DL Hematocrit 28.4 % Mean Corpuscular Volume 100.9 FL Mean Corpuscular Hemoglobin 32.0 PG Mean Corpuscular Hemoglobin Concent 31.7 % Red Cell Distribution Width 20.3 % Platelet Count 84 TH/MM3 Mean Platelet Volume 9.0 FL Neutrophils (%) (Auto) 85.3 % Lymphocytes (%) (Auto) 5.4 % Monocytes (%) (Auto) 8.0 % Eosinophils (%) (Auto) 1.0 % Basophils (%) (Auto) 0.3 % Neutrophils # (Auto) 7.9 TH/MM3 Lymphocytes # (Auto) 0.5 TH/MM3 Monocytes # (Auto) 0.7 TH/MM3 Eosinophils # (Auto) 0.1 TH/MM3 Basophils # (Auto) 0.0 TH/MM3 CBC Comment AUTO DIFF Differential Total Cells Counted 100 Neutrophils % (Manual) 71 % Band Neutrophils % 19 % Lymphocytes % 6 % Monocytes % 2 % Eosinophils % 1 % Neutrophils # (Manual) 8.4 TH/MM3 Metamyelocytes 1 % Differential Comment FINAL DIFF MANUAL Platelet Estimate LOW Platelet Morphology Comment ENLARGED Ovalocytes 1+ Lactic Acid Level 2.2 mmol/L Prothrombin Time 11.4 SEC Prothromb Time International Ratio 1.0 RATIO Blood Urea Nitrogen 19 MG/DL Creatinine 1.01 MG/DL Random Glucose 159 MG/DL Total Protein 6.4 GM/DL Albumin 2.6 GM/DL Calcium Level 8.5 MG/DL Magnesium Level 2.0 MG/DL Alkaline Phosphatase 157 U/L Aspartate Amino Transf (AST/SGOT) 12 U/L Alanine Aminotransferase (ALT/SGPT) 16 U/L Total Bilirubin 0.6 MG/DL Sodium Level 146 MEQ/L Potassium Level 4.3 MEQ/L Chloride Level 109 MEQ/L Carbon Dioxide Level 29.6 MEQ/L Anion Gap 7 MEQ/L Estimat Glomerular Filtration Rate 71 ML/MIN Troponin I LESS THAN 0.02 NG/ML Blood Gas Puncture Site LT RADIAL Blood Gas Patient Temperature 98.6 Blood Gas HCO3 25 mmol/L Blood Gas Base Excess 1.2 mmol/L Blood Gas Oxygen Saturation 98 % Arterial Blood pH 7.42 Arterial Blood Partial Pressure CO2 39 mmHg Arterial Blood Partial Pressure O2 193 mmHG Arterial Blood Oxygen Content 17.1 Vol % Arterial Blood Carboxyhemoglobin 2.0 % Arterial Blood Methemoglobin 0.3 % Blood Gas Hemoglobin 12.1 G/DL Oxygen Delivery Device BiPAP Blood Gas Ventilator Setting IPAP18/EPAP8 Blood Gas Inspired Oxygen 100 % Urine Color YELLOW Urine Turbidity HAZY Urine pH 5.5 Urine Specific [place] 1.023 Urine Protein 30 mg/dL Urine Glucose (UA) 70 mg/dL Urine Ketones NEG mg/dL Urine Occult Blood MOD Urine Nitrite NEG Urine Bilirubin NEG Urine Urobilinogen 2.0 MG/DL Urine Leukocyte Esterase NEG Urine RBC 109 /hpf Urine WBC 3 /hpf Urine Amorphous Sediment RARE Urine Bacteria FEW /hpf Microscopic Urinalysis Comment CULT NOT INDICATED MDM Medical Decision Making Medical Screen Exam Complete: Yes Emergency Medical Condition: Yes Medical Record Reviewed: Yes Interpretation(s) Twelve-lead EKG was reviewed by me. Atrial fibrillation, RVR, normal axis, right bundle branch block, PVCs. Heart rate 126 bpm. Differential Diagnosis Pneumonia, congestive heart failure, pleural effusion Narrative Course 2 PM patient was started on BiPAP upon arrival. He has been tolerating it well. He has kept his oxygen saturation about 95%. Blood test results are back and shows sepsis. Chest x-ray suggestive of pneumonia. Patient was given IV Azactam and vancomycin for sepsis coverage. I discussed his condition with his who is currently present at the bedside. I've expressed to her the critical condition of her . She understands. She is the healthcare proxy for him. She mentioned that she does not want him to suffer. I discussed the case with the pyrometer mechanic and he has accepted it. Critical Care Narrative Aggregate critical care time was 60 minutes. Time to perform other separately billable procedures was not included in the critical care time. My time did not include minutes spent treating any other patients simultaneously or on activities that did not directly contribute to the patient's treatment. The services I provided to this patient were to treat and/or prevent clinically significant deterioration that could result in: Respiratory distress, hypoxia, sepsis, sepsis protocol I provided critical care services requiring my management, as noted below: Chart data review, documentation time, medication orders and management, vital sign assessments/reviewing monitor data, ordering and reviewing lab tests, ordering and interpreting/reviewing x-rays and diagnostic studies, care of the patient and discussion of the patient with the admitting physicians. Procedures EKG Prior to Arrival: No Physician Communication Physician Communication Dr. Alvarez Diagnosis Primary Impression: Respiratory distress Additional Impressions: Hypoxia Pneumonia Qualified Codes: J18.9 - Pneumonia, unspecified organism Sepsis Qualified Codes: A41.9 - Sepsis, unspecified organism Admitting Information Admitting Physician Requests: Admit Scripts No Active Prescriptions or Reported Meds Jerod Whyte MD Dec 13, 2016 14:21
[2016-12-13] MEDS ORDERED: SODIUM CHLOR 0.9% 1000 ML INJ 1,000 ML IV SCH (14:24)
--- NOTE | 2016-12-13 14:28 | HHI.HP ---
[facility] Service Critical Care Medicine Primary Care Physician [facility] Admission Diagnosis pneumonia, and dementia, sepsis Diagnosis: (1) Non-small cell carcinoma of lung Diagnosis: Principal (2) Respiratory distress Diagnosis: Principal (3) Hypoxia Diagnosis: Principal (4) Sepsis Diagnosis: Principal (5) Pneumonia Diagnosis: Principal Chief Complaint: Short of breath Travel History International Travel<30 Days: No Contact w/Intl Traveler <30 Da: No Traveled to Known Affected Are: No Sepsis Criteria SIRS Criteria (2 or more): WBC > 80192, < 4000 or > 10% bands Sepsis Criteria (SIRS+source): Infect source susp/known Severe Sepsis (+one): Hypoperfusion History of Present Illness This is a 81-year-old male. Date of admission 12/13/2016. Past medical history includes lung cancer, bladder cancer, COPD, hypertension hypothyroidism. Patient was admitted to [facility] in October for failure to thrive/weakness pneumonia. Has been rehabilitation's return home. The questions whether he is chronically aspiration. He presents to [facility] acutely short of breath. , Patient states he did not want to be intubated. Discussion with family after reviewing medical records schedule ED physician, decision was made the patient DNR/DNI and will go to hospice care center today. Review of Systems ROS Limitations: Altered Mental Status Past Family Social History Allergies: Coded Allergies: Pork/Porcine Containing Products (Unverified Allergy, Severe, 10/22/16) beef derived (bovine) (Unverified Allergy, Severe, 10/22/16) amoxicillin (Verified Allergy, Intermediate, Rash, 12/11/16) azithromycin (Verified Allergy, Intermediate, Rash, 12/11/16) clavulanic acid (Verified Allergy, Intermediate, Rash, 12/11/16) peas (Unverified Adverse Reaction, Severe, VOMITING, 12/11/16) Past Medical History Hypothyroidism Attention Lung and bladder cancer COPD Anxiety Gastroesophageal reflux disease Diabetes mellitus Gout On a prednisone use Past Surgical History TNA Cervical laminectomy Cholecystectomy Liver transplant Colon resection with reversal Cystoscopy Reported Medications Ferrous Sulfate 325 Mg (65 Mg Iron) Tablet 325 Mg PO DAILY Ventolin Hfa 18 GM Inh (Albuterol Sulfate) 90 Mcg/Act Aer 2 Puff INH Q4-6H PRN Ursodiol 300 Mg Cap 300 Mg PO BID Lyrica (Pregabalin) 150 Mg Cap 150 Mg PO BID Prednisone 2.5 Mg Tab 2.5 Mg PO DAILY Miralax (Polyethylene Glycol 3350) 17 Gm Powd.pack Omeprazole 20 Mg Tab 20 Mg PO DAILY Nortriptyline (Nortriptyline HCl) 10 Mg Cap 10 Mg PO HS Mycophenolate (Mycophenolate Mofetil) 500 Mg Tab 500 Mg PO BID Levothyroxine (Levothyroxine Sodium) 100 Mcg Tab 100 Mcg PO DAILY Lantus Solostar Pen Inj (Insulin Glargine) 300 Unit/3 Ml Pen 4-10 Units SQ Afrezza 4 & 8 & 12 Unit (Insulin Regular (Human)) 1 Pow Pow Folic Acid 800 Mcg Tab 1,000 Mcg PO DAILY D-2000 Maximum Strength (Cholecalciferol) 2,000 Unit Tab 2,000 Units PO DAILY Allopurinol 100 Mg Tab 100 Mg PO DAILY Active Ordered Medications Reviewed in EMR Family History Family history diabetes. No history of colon cancer Social History Quit tobacco in 1984. Quit alcohol. No IV drug use. Physical Exam Vital Signs Vital Signs Date Time Temp Pulse Resp B/P (MAP) Pulse Ox O2 Delivery O2 Flow Rate FiO2 12/13/16 13:11 118 21 121/85 (97) 100 BiPAP 100 12/13/16 12:40 129 22 120/71 (87) 100 BiPAP 100 12/13/16 12:20 BiPAP 100 12/13/16 12:14 Non-Rebreather 100 12/13/16 12:14 98.5 126 30 118/61 (80) 95 12/13/16 12:14 BiPAP 12/13/16 12:14 98.5 126 30 118/61 (80) 95 Non-Rebreather 12/13/16 12:10 100 100 Physical Exam GENERAL: 81-year-old male, critically ill currently resting in bed SKIN: Warm and dry. Petechiae HEAD: Atraumatic. Normocephalic. EYES: Pupils equal and round about 2 mm bilaterally and reactive. No scleral icterus. No injection or drainage. ENT: No nasal bleeding or discharge. Mucous membranes pink and moist. NECK: Trachea midline. No JVD. CARDIOVASCULAR: Regular rate and rhythm. S1, S2 no S4. RESPIRATORY: His breath sounds throughout." Crackles at the left lobe GASTROINTESTINAL: Abdomen soft, non-tender, nondistended. Hepatic and splenic margins not palpable. MUSCULOSKELETAL: Extremities without edema. Chronic venous stasis and stasis NEUROLOGICAL: Arousable. Cranial Nerves II through XII grossly intact. His EXTREMITIES spontaneously. Laboratory Laboratory Tests Test 12/13/16 12:20 12/13/16 12:25 12/13/16 12:37 12/13/16 13:16 White Blood Count 9.2 Red Blood Count 2.82 Hemoglobin 9.0 Hematocrit 28.4 Mean Corpuscular Volume 100.9 Mean Corpuscular Hemoglobin 32.0 Mean Corpuscular Hemoglobin Concent 31.7 Red Cell Distribution Width 20.3 Platelet Count 84 Mean Platelet Volume 9.0 Neutrophils (%) (Auto) 85.3 Lymphocytes (%) (Auto) 5.4 Monocytes (%) (Auto) 8.0 Eosinophils (%) (Auto) 1.0 Basophils (%) (Auto) 0.3 Neutrophils # (Auto) 7.9 Lymphocytes # (Auto) 0.5 Monocytes # (Auto) 0.7 Eosinophils # (Auto) 0.1 Basophils # (Auto) 0.0 CBC Comment AUTO DIFF Differential Total Cells Counted 100 Neutrophils % (Manual) 71 Band Neutrophils % 19 Lymphocytes % 6 Monocytes % 2 Eosinophils % 1 Neutrophils # (Manual) 8.4 Metamyelocytes 1 Differential Comment FINAL DIFF MANUAL Platelet Estimate LOW Platelet Morphology Comment ENLARGED Ovalocytes 1+ Lactic Acid Level 2.2 Prothrombin Time 11.4 Prothromb Time International Ratio 1.0 Blood Urea Nitrogen 19 Creatinine 1.01 Random Glucose 159 Total Protein 6.4 Albumin 2.6 Calcium Level 8.5 Magnesium Level 2.0 Alkaline Phosphatase 157 Aspartate Amino Transf (AST/SGOT) 12 Alanine Aminotransferase (ALT/SGPT) 16 Total Bilirubin 0.6 Sodium Level 146 Potassium Level 4.3 Chloride Level 109 Carbon Dioxide Level 29.6 Anion Gap 7 Estimat Glomerular Filtration Rate 71 Troponin I LESS THAN 0.02 Blood Gas Puncture Site LT RADIAL Blood Gas Patient Temperature 98.6 Blood Gas HCO3 25 Blood Gas Base Excess 1.2 Blood Gas Oxygen Saturation 98 Arterial Blood pH 7.42 Arterial Blood Partial Pressure CO2 39 Arterial Blood Partial Pressure O2 193 Arterial Blood Oxygen Content 17.1 Arterial Blood Carboxyhemoglobin 2.0 Arterial Blood Methemoglobin 0.3 Blood Gas Hemoglobin 12.1 Oxygen Delivery Device BiPAP Blood Gas Ventilator Setting IPAP18/EPAP8 Blood Gas Inspired Oxygen 100 Urine Color YELLOW Urine Turbidity HAZY Urine pH 5.5 Urine Specific [place] 1.023 Urine Protein 30 Urine Glucose (UA) 70 Urine Ketones NEG Urine Occult Blood MOD Urine Nitrite NEG Urine Bilirubin NEG Urine Urobilinogen 2.0 Urine Leukocyte Esterase NEG Urine RBC 109 Urine WBC 3 Urine Amorphous Sediment RARE Urine Bacteria FEW Microscopic Urinalysis Comment CULT NOT INDICATED Date/Time Source Procedure Growth Status 12/13/16 12:25 Blood Peripheral Aerobic Blood Culture Pending Received 12/13/16 12:25 Blood Peripheral Anaerobic Blood Culture Pending Received Result Diagram: 12/13/16 1220 12/13/16 1225 Imaging Last Impressions Chest X-Ray 12/13/16 1215 Signed Impressions: Service Date/Time: Tuesday, December 13, 2016 12:36 - CONCLUSION: 1. Enlarging increasing opacity to the diffuse consolidation involving the left mid and lower lung. 2. New small area of consolidation in the medial right midlung. 3. [id number] unchanged in position from prior examination. No evidence of pneumothorax. Pablito Neely MD [place] VTE Risk Assessment Caprini VTE Risk Assessment: Mod/High Risk (score >= 2) Caprini Risk Assessment Model Point Value = 1 Point Value = 2 Point Value = 3 Point Value = 5 Age 41-60 Minor surgery BMI > 25 kg/m2 Swollen legs Varicose veins or History of unexplained or recurrent spontaneous Oral contraceptives or hormone replacement Sepsis (< 1 month) Serious lung disease, including pneumonia (< 1 month) Abnormal pulmonary function Acute myocardial infarction Congestive heart failure (< 1 month) History of inflammatory bowel disease Medical patient at bed rest Age 61-74 Arthroscopic surgery Major open surgery (> 45 min) Laparoscopic surgery (> 45 min) Malignancy Confined to bed (> 72 hours) Immobilizing plaster cast Central venous access Age >= 75 History of VTE Family history of VTE Factor V Leiden Prothrombin [id number] Lupus anticoagulant Anticardiolipin antibodies Elevated serum homocysteine Heparin-induced thrombocytopenia Other congenital or acquired thrombophilia Stroke (< 1 month) Elective arthroplasty Hip, pelvis, or leg fracture Acute spinal cord injury (< 1 month) Prophylaxis Regimen Total Risk Factor Score Risk Level Prophylaxis Regimen 0-1 Low Early ambulation 2 Moderate Order ONE of the following: *Sequential Compression Device (SCD) *Heparin 5000 units SQ BID 3-4 Higher Order ONE of the following medications: *Heparin 5000 units SQ TID *Enoxaparin/Lovenox 40 mg SQ daily (WT < 150 kg, CrCl > 30 mL/min) *Enoxaparin/Lovenox 30 mg SQ daily (WT < 150 kg, CrCl > 10-29 mL/min) *Enoxaparin/Lovenox 30 mg SQ BID (WT < 150 kg, CrCl > 30 mL/min) AND/OR *Sequential Compression Device (SCD) 5 or more Highest Order ONE of the following medications: *Heparin 5000 units SQ TID (Preferred with Epidurals) *Enoxaparin/Lovenox 40 mg SQ daily (WT < 150 kg, CrCl > 30 mL/min) *Enoxaparin/Lovenox 30 mg SQ daily (WT < 150 kg, CrCl > 10-29 mL/min) *Enoxaparin/Lovenox 30 mg SQ BID (WT < 150 kg, CrCl > 30 mL/min) AND *Sequential Compression Device (SCD) Assessment and Plan Assessment and Plan Neuro/Psych: Chronic pain management Continue pregabalin 150 mill grams daily and nortriptyline 10 mill grams at night Previously on high-dose narcotics. Off all medications the present time. Written for acetaminophen for fever/[place] and morphine for pain management CV: Hypertension Currently not on any home medications. Currently not requiring and hypertensive and/or vasopressors Resp: Acute respiratory failure secondary to pneumonia possibly aspiration Chest x-ray revealed increasing consolidation right/middle lobes and left lingula/lower lobes Currently on BiPAP 16/5 at 60% Will transition to oxygen for comfort On albuterol 18 mg inhaler every 4 hours at home GI: History of liver transplant secondary cirrhosis Gastroesophageal reflux disease Home medications include mycophenolate 50 mg 3 times a day and prednisone 2.5 mill grams by mouth daily along with folic acid 1 mg daily. At home on omeprazole 20 mg by mouth daily and Martínez DL 3 mg twice a day : No indication for Donahue catheter Endo: Diabetes mellitus Hypothyroidism Continue levothyroxine 100 by mouth daily. 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 Blood cultures 2 were drawn. MSK: PT if indicated FEN: No indication electrolyte replacement Access - Peripheral IVs/utilize right [id number] if needed Prophylaxis - GI - not indicated - DVT - not indicated in current hospice situation Level II admission Hospice consultation Code Status DNR Discussed Condition With Dr. Whyte. ED. and sister. Care plan discussed and all ?s answered. Problem Qualifiers (1) Sepsis: Qualified Codes: A41.9 - Sepsis, unspecified organism (2) Pneumonia: Qualified Codes: J18.9 - Pneumonia, unspecified organism Lyle Alvarez MD Dec 13, 2016 14:28
[2016-12-13] MEDS ORDERED: RESP: ALBUTEROL 2.5 MG/3 ML NEB (PRN) INH (14:30)
[2016-12-13] MEDS ORDERED: ACETAMINOPHEN 325 MG TAB PO PRN (14:30)
[2016-12-13] MEDS ORDERED: ACETAMINOPHEN/HYDROcodone 325 MG/5 MG TAB PO PRN (14:30)
[2016-12-13] MEDS ORDERED: SODIUM CHLORIDE 0.9% FLUSH 10 ML FLUSH IV FLUSH PRN (14:30)
[2016-12-13] MEDS ORDERED: ONDANSETRON HCL 4 MG/2 ML VIAL IV PUSH PRN (14:30)
[2016-12-13] MEDS ORDERED: MORPHINE SULFATE 4 MG/ML INJ IV PUSH PRN (14:30)
[2016-12-13] MEDS ORDERED: LORazepam 2 MG/ML VIAL IV PUSH PRN (14:30)
--- NOTE | 2016-12-13 15:31 | HHI.DS ---
Discharge Summary Admission Date Dec 13, 2016 at 14:08 Admitting Diagnosis pneumonia, and dementia, sepsis (1) Non-small cell carcinoma of lung ICD Code: C34.90 - Malignant neoplasm of unspecified part of unspecified bronchus or lung Diagnosis: Principal Status: Acute (2) Respiratory distress ICD Code: R06.00 - Dyspnea, unspecified Diagnosis: Principal Status: Acute (3) Hypoxia ICD Code: R09.02 - Hypoxemia Diagnosis: Principal Status: Acute (4) Sepsis ICD Code: A41.9 - Sepsis, unspecified organism Diagnosis: Principal Status: Acute (5) Pneumonia ICD Code: J18.9 - Pneumonia, unspecified organism Diagnosis: Principal Status: Acute Procedures Consult hospice Brief History This is a 81-year-old male. Date of admission 12/13/2016. Past medical history includes lung cancer, bladder cancer, COPD, hypertension hypothyroidism. Patient was admitted to [facility] in October for failure to thrive/weakness pneumonia. Has been rehabilitation's return home. The questions whether he is chronically aspiration. He presents to [facility] acutely short of breath. , Patient states he did not want to be intubated. Discussion with family after reviewing medical records schedule ED physician, decision was made the patient DNR/DNI and will go to hospice care center today. CBC/BMP: 12/13/16 1220 12/13/16 1225 Significant Findings Laboratory Tests Test 12/13/16 12:20 12/13/16 12:25 12/13/16 12:37 12/13/16 13:16 Red Blood Count 2.82 MIL/MM3 (4.50-5.90) Hemoglobin 9.0 GM/DL (13.0-17.0) Hematocrit 28.4 % (39.0-51.0) Mean Corpuscular Volume 100.9 FL (80.0-100.0) Mean Corpuscular Hemoglobin Concent 31.7 % (32.0-36.0) Red Cell Distribution Width 20.3 % (11.6-17.2) Platelet Count 84 TH/MM3 (150-450) Neutrophils (%) (Auto) 85.3 % (16.0-70.0) Lymphocytes (%) (Auto) 5.4 % (9.0-44.0) Neutrophils # (Auto) 7.9 TH/MM3 (1.8-7.7) Lymphocytes # (Auto) 0.5 TH/MM3 (1.0-4.8) Neutrophils % (Manual) 71 % (16-70) Band Neutrophils % 19 % (0-6) Lymphocytes % 6 % (9-44) Neutrophils # (Manual) 8.4 TH/MM3 (1.8-7.7) Platelet Estimate LOW (NORMAL) Platelet Morphology Comment ENLARGED (NORMAL) Ovalocytes 1+ (NORMAL) Lactic Acid Level 2.2 mmol/L (0.4-2.0) Blood Urea Nitrogen 19 MG/DL (7-18) Random Glucose 159 MG/DL (74-106) Albumin 2.6 GM/DL (3.4-5.0) Alkaline Phosphatase 157 U/L (45-117) Aspartate Amino Transf (AST/SGOT) 12 U/L (15-37) Sodium Level 146 MEQ/L (136-145) Chloride Level 109 MEQ/L (98-107) Estimat Glomerular Filtration Rate 71 ML/MIN (>89) Troponin I LESS THAN 0.02 NG/ML Arterial Blood Partial Pressure O2 193 mmHG (61-120) Urine Turbidity HAZY (CLEAR) Urine Protein 30 mg/dL (NEG-TRACE) Urine Glucose (UA) 70 mg/dL (NEG) Urine Occult Blood MOD (NEG) Urine RBC 109 /hpf (0-3) Urine Bacteria FEW /hpf (NONE) Imaging Last Impressions Chest X-Ray 12/13/16 1215 Signed Impressions: Service Date/Time: Tuesday, December 13, 2016 12:36 - CONCLUSION: 1. Enlarging increasing opacity to the diffuse consolidation involving the left mid and lower lung. 2. New small area of consolidation in the medial right midlung. 3. Vgbvcy-[id number] unchanged in position from prior examination. No evidence of pneumothorax. Pablito Neely MD PE at Discharge GENERAL: 81-year-old male, critically ill currently resting in bed SKIN: Warm and dry. HEAD: Atraumatic. Normocephalic. EYES: Pupils equal and round. No scleral icterus. No injection or drainage. ENT: No nasal bleeding or discharge. Mucous membranes pink and moist. NECK: Trachea midline. No JVD. CARDIOVASCULAR: Regular rate and rhythm. s1, S2 no S4. RESPIRATORY: + accessory muscle use. Coarse crackles appreciated bilaterally GASTROINTESTINAL: Abdomen soft, non-tender, nondistended. Hepatic and splenic margins not palpable. MUSCULOSKELETAL: Extremities without clubbing, cyanosis, or edema. No obvious deformities. NEUROLOGICAL Moves all 4 R remedies continues extremities emedies spontaneously. Transfer Summary Neuro/Psych: Chronic pain management Continue pregabalin 150 mill grams daily and nortriptyline 10 mill grams at night Previously on high-dose narcotics. Off all medications the present time. Written for acetaminophen for fever/[place] and morphine for pain management CV: Hypertension Currently not on any home medications. Currently not requiring and hypertensive and/or vasopressors Resp: Acute respiratory failure secondary to pneumonia possibly aspiration Chest x-ray revealed increasing consolidation right/middle lobes and left lingula/lower lobes Currently on BiPAP 16/5 at 60% Will transition to oxygen for comfort On albuterol 18 mg inhaler every 4 hours at home GI: History of liver transplant secondary cirrhosis Gastroesophageal reflux disease Home medications include mycophenolate 50 mg 3 times a day and prednisone 2.5 mill grams by mouth daily along with folic acid 1 mg daily. At home on omeprazole 20 mg by mouth daily and Martínez DL 3 mg twice a day : No indication for Donahue catheter Endo: Diabetes mellitus Hypothyroidism Continue levothyroxine 100 by mouth daily. 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 Blood cultures 2 were drawn. MSK: PT if indicated FEN: No indication electrolyte replacement Access - Peripheral IVs/utilize right [id number] if needed Prophylaxis - GI - not indicated - DVT - not indicated in current hospice situation Level II admission Hospice consultation Code Status DNR Discussed Condition With Dr. Whyte. ED. and sister. Care plan discussed and all ?s answered. Hospital Course Neuro/Psych: Chronic pain management Continue pregabalin 150 mill grams daily and nortriptyline 10 mill grams at night Previously on high-dose narcotics. Off all medications the present time. Written for acetaminophen for fever/[place] and morphine for pain management CV: Hypertension Currently not on any home medications. Currently not requiring and hypertensive and/or vasopressors Resp: Acute respiratory failure secondary to pneumonia possibly aspiration Chest x-ray revealed increasing consolidation right/middle lobes and left lingula/lower lobes Currently on BiPAP 16/5 at 60% Will transition to oxygen for comfort On albuterol 18 mg inhaler every 4 hours at home GI: History of liver transplant secondary cirrhosis Gastroesophageal reflux disease Home medications include mycophenolate 50 mg 3 times a day and prednisone 2.5 mill grams by mouth daily along with folic acid 1 mg daily. At home on omeprazole 20 mg by mouth daily and Martínez DL 3 mg twice a day : No indication for Donahue catheter Endo: Diabetes mellitus Hypothyroidism Continue levothyroxine 100 by mouth daily. 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 Blood cultures 2 were drawn. MSK: PT if indicated FEN: No indication electrolyte replacement Access - Peripheral IVs/utilize right [id number] if needed Prophylaxis - GI - not indicated - DVT - not indicated in current hospice situation Level II admission Hospice consultation Code Status DNR Discussed Condition With Dr. Whyte. ED. and sister. Care plan discussed and all ?s answered. Pt Condition on Discharge: Deteriorating Discharge Disposition: Hospice/Med Facility Discharge Instructions DIET: Follow Instructions for: Nothing By Mouth Activities you can perform: Continue Bedrest Lyle Alvarez MD Dec 13, 2016 15:31
[2016-12-13 17:36] VITALS: O2SAT 100
[2016-12-13] MEDS ORDERED: NORTRIPTYLINE HCL 10 MG CAP PO SCH (21:00)
[2016-12-13] MEDS ORDERED: SODIUM CHLORIDE 0.9% FLUSH 10 ML FLUSH IV FLUSH SCH (21:00)
[2016-12-13] MEDS ORDERED: PREGABALIN 75 MG CAP PO SCH (21:00)
--- NOTE | 2016-12-14 05:17 | EKG ---
Date Performed: 12/13/2016 Time Performed: 12:48:10 PTAGE: 81 years EKG: ATRIAL FIBRILLATION WITH RAPID VENTRICULAR RESPONSE RIGHT BUNDLE BRANCH BLOCK ABNORMAL ECG PREVIOUS TRACING : 12/13/2016 12.36 DOCTOR: Usman Martines Interpretating Date/Time 12/14/2016 05:08:53
[2016-12-14] MEDS ORDERED: LEVOTHYROXINE SODIUM 100 MCG TAB PO SCH (06:00)
== END 2016-12-13 18:15 | disposition hospice, inpatient (51) | DRG 871 ==
LOC: NEPE 12:08 → NEDA 14:08
PROVIDERS: ADMIT Internal Medicine Critical Care Medicine; ATTEND Internal Medicine Critical Care Medicine
DX: A41.9 Sepsis, unspecified organism (principal); J18.9 Pneumonia, unspecified organism; J96.01 Acute respiratory failure with hypoxia; J44.0 Chronic obstructive pulmonary disease with (acute) lower respiratory infection; C34.90 Malignant neoplasm of unspecified part of unspecified bronchus or lung; F03.90 Unspecified dementia, unspecified severity, without behavioral disturbance, psychotic disturbance, mood disturbance, and anxiety; D69.6 Thrombocytopenia, unspecified; D53.9 Nutritional anemia, unspecified; Z94.4 Liver transplant status; I48.91 Unspecified atrial fibrillation; I45.10 Unspecified right bundle-branch block; I10 Essential (primary) hypertension; E03.9 Hypothyroidism, unspecified; Z51.5 Encounter for palliative care; E11.9 Type 2 diabetes mellitus without complications; Z66 Do not resuscitate; M10.9 Gout, unspecified; K21.9 Gastro-esophageal reflux disease without esophagitis; F41.9 Anxiety disorder, unspecified; Z87.891 Personal history of nicotine dependence; Z85.51 Personal history of malignant neoplasm of bladder; Z85.118 Personal history of other malignant neoplasm of bronchus and lung
CPT/HCPCS: 36600; 71010; 80053; 81001; 82805; 83605; 83735; 84484; 85007; 85025; 85027; 85610; 85730; 86850; 86900; 86901; 87040; 93005; 96365; 96375; J2270; J2930; J3370; J7030; J7050